=== PATIENT | male | born 1960 | race Caucasian/White ===

== ENCOUNTER 2021-05-09 11:05 | Emergency (ER) | payer OTHER, SELFPAY ==
[2021-05-09 11:21] VITALS: BP 160/110; PULSE 101; RESP 16; TEMP 36.3; O2SAT 98
--- NOTE | 2021-05-09 12:33 | ED_ITS ---
HPI - Back Pain/Injury General: Chief Complaint: Back Pain/Injury Stated Complaint: FALL RELATED BACK PAIN/NO BM SINCE 05/05 Time Seen by Provider: 05/09/21 11:26 History of Present Illness: HPI Narrative: Patient is a 60-year-old male comes to the ED with lower back pain and constipation. 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 After that he started having lower back p ain. He says it is worse whenever he is sitting. The pain radiates around from the lower back and to the front pelvic region. Denies any pain radiating down the legs, weakness to lower extremities, pelvic anesthesia or any bladder or bowel incontinence. Denies any dysuria or hematuria. He has been taking ibuprofen and Tylenol to help with pain. He also reports not having a bowel movement for the last 4 days as well. He states that is unusual for him and he usually has daily bowel movements. Patient did say he has not eaten much over the past 4 days since injury due to pain. He reports not having a sensation or feeling that he needs to have a bowel movement. Associated symptoms: Deny abdominal pain, chills, dysuria, fatigue, fever(s), hematuria, nausea or vomiting Review of Systems Const: Denies: fever(s), chills or fatigue Eyes: Denies: change in vision or eye discomfort ENMT: Denies: throat pain, odynophagia, nasal discharge or nasal congestion Card: Denies: chest pain, palpitations, edema, swelling of feet/ankles, dyspnea on exertion or orthopnea Resp: Denies: dyspnea, productive cough or non-productive cough GI: Reports: constipation; Denies: abdominal pain, nausea, vomiting, diarrhea or hematochezia : Denies: flank pain, difficulty urinating, dysuria or hematuria Musc: Reports: back pain; Denies: neck pain or extremity swelling Skin/Breast: Denies: rash or new lesions Neuro: Denies: headache(s), numbness in extremities or weakness in extremities Physical Exam Narrative: EXAM NARRATIVE: Patient is lying on his right side when I entered the exam room. He is not moving around much and laying still. Const: COMMON NORMALS: patient oriented x3 and alert GENERAL APPEARANCE: cooperative; not comfortable (Patient appears uncomfortable and in some pain.) NUTRITIONAL APPEARANCE: overweight HENMT: COMMON NORMALS: normocephalic HEAD & SCALP: normocephalic MOUTH: Normal oral and palatal mucosa present THROAT: posterior oropharynx normal and uvula midline Neck/C-Spine: COMMON NORMALS: supple GENERAL: Yes normal visual inspection Resp: COMMON NORMALS: normal respiratory effort, No retractions, No use of accessory muscles and clear to auscultation bilaterally AUSCULTATION: clear to auscultation bilaterally Cardio: COMMON NORMALS: regular rate, regular rhythm, S1 normal heart sound present, S2 normal heart sound present, No gallops present (Cardio), No clicks present (Cardio), No murmurs present (Cardio) and Peripheral pulses 2+ throughout RATE: regular rate RHYTHM: regular rhythm HEART SOUNDS: S1 normal heart sound present and S2 normal heart sound present PERIPHERAL PULSES: Peripheral pulses 2+ throughout GI: COMMON NORMALS: Normal to inspection, nondistended, normoactive bowel sounds present, Soft to palpation, non-tender and no masses PALPATION: Yes Soft to palpation : COMMON NORMALS: Yes no CVA tenderness BLADDER/KIDNEY EXAM: Yes no CVA tenderness Back/Pelvis: COMMON NORMALS: no CVA tenderness LUMBAR SPINE/LOWER BACK: Yes pain with ROM, Yes lumbar spinal tenderness Lumbar spinal tenderness location: L1, L2 and L3 and No paraspinal muscle tenderness Extremity: COMMON NORMALS: normal to inspection Neuro: COMMON NORMALS: patient oriented x3 and moves all extremities SENSORIUM/ORIENTATION: Yes alert Skin: GENERAL SKIN EXAM: dry skin Course Vital Signs: Vital signs: Vital Signs Temperature 97.3 F L 05/09/21 11:21 Pulse Rate 80 05/09/21 16:22 Respiratory Rate 16 05/09/21 16:22 Blood Pressure 160/110 05/09/21 11:21 Pulse Oximetry 96 05/09/21 16:22 MDM - Back Pain/Injury MDM Narrative: Medical decision making narrative: Patient is a 60-year-old male comes to the ED with lower back pain and constipation. 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 After that he started having lower back pain. He says it is worse whenever he is sitting. He is also complained having some constipation over the last 4 days. Denies any cauda equina symptoms. Vitals stable. Patient is some lumbar spinal tenderness around L1, L2, L3. KUB showed no acute findings or any signs of obstruction. X-ray of lumbar spine showed L2 compression fracture. X-ray of sacrum and coccyx showed no acute fractures or findings. I placed order with case management for patient to be referred to Dr. Kent for further follow-up of L2 compression fracture. Patient was put in a TLSO brace by physical therapy here in the ED. He was discharged home with a prescription for hydrocodone for pain and also sent home with a prescription for some stool softener and MiraLAX to help with constipation. Return to ED precautions given. Patient was told business case analyst will set up an appoint with Dr. Kent during the next several days. Patient stood agree with plan. Lab Data: Labs: Lab Results 05/09/21 13:15 Urine Color Yellow (Yellow) Urine Appearance Clear (CLEAR) Urine pH 5 (5-7) Ur Specific Gravit y 1.020 (1.005-1.030) Urine Protein 2+ H (Negative) Urine Glucose (UA) 4+ H (Normal) Urine Ketones 1+ H (Negative) Urine Blood 2+ H (Negative) Urine Nitrate Negative (Negative) Urine Bilirubin Neg (Negative) Urine Urobilinogen 1 mg/dL H mg/dL (Negative) Ur Leukocyte Gloria ase Negative (Negative) Urine RBC 0-4 /hpf H /hpf (0-2) Urine WBC 0-4 /hpf H /hpf (0-5) Ur Squamous Epith Cells Rare /hpf /hpf (0-5) Amorphous Sediment Not Reportable Urine Bacteria Trace /hpf /hpf (NONE) Hyaline Casts 0-4 /lpf H /lpf Urine Mucus Trace /hpf /hpf Imaging Data^: Xray Ortho: Attestation: I personally reviewed and interpreted this imaging study as follows: Radiologist's impression: [address] [address] XRay Report Signed Patient: Chinmay Spaulding Unit #: [id number] : 1960 Age/Sex: 60 / M ADM Date: 05/09/21 Loc: ER Room/Bed: Attending Dr: Ordering Provider/Ordering MD: Rolando Rios Date of Service: 12/17/21 Procedure(s): XR lumbar spine 2-3V* 21081 Accession Number(s): [id number] Report Number: [id number] WS: [id number] XR lumbar spine 2-3V* 39295 REASON FOR EXAM: fall with lower back pain FINDINGS: There appear to be 6 lumbar vertebral bodies without ribs. There are biconcave compression deformities of the last vertebrae with ribs and the first 3 lumbar vertebrae. The compression deformity of the second lumbar vertebrae could represent an acute/subacute compression fracture. Complex fused transitional vertebrae variant at the lumbosacral junction without acute abnormality. Biconcave compression deformity of the fused transitional lumbar vertebra, chronic appearing. Intervertebral disc spaces are relatively well-preserved. XR/XR lumbar spine 2-3V* [id number] IMPRESSION: Possible acute/subacute compression fracture of the second lumbar vertebrae. Dictated By: Louis Boston Jr, MD Signed By: Louis Boston Jr, MD Signed Date/Time: 05/09/21 1325 DD/ [address] [address] XRay Report Signed Patient: Chinmay Spaulding Unit #: [id number] : 1960 Age/Sex: 60 / M ADM Date: 05/09/21 Loc: ER Room/Bed: Attending Dr: Ordering Provider/Ordering MD: Rolando Rios Date of Service: 05/09/21 Procedure(s): XR sacrum coccyx min 2V 83332 Accession Number(s): [id number] Report Number: [id number] WS: [id number] XR sacrum coccyx min 2V 15344 REASON FOR EXAM: fall with low back pain FINDINGS: No fracture or dislocation. No focal bone lesion. Narrowing and indistinctness of the sacroiliac joints with subchondral sclerosis and cystic change. No soft tissue abnormality. XR/XR sacrum coccyx min 2V 72069 IMPRESSION: No acute abnormality. Chronic sacroiliitis, likely osteoarthritis. Dictated By: Louis Boston Jr, MD Signed By: Louis Boston Jr, MD Signed Date/Time: 05/09/21 1312 DD/ 1307 Discharge Plan Discharge Patient Disposition: Home Clinical Impression: Compression of lumbar vertebra Qualifiers: Encounter type: initial encounter Lumbar vertebra fracture level: L2 Qualified Code(s): S32.020A - Wedge compression fracture of second lumbar vertebra, initial encounter for closed fracture Constipation Qualifiers: Constipation type: slow transit constipation Qualified Code(s): K59.01 - Slow transit constipation Condition: Stable Prescriptions: New Miralax 17 gram/dose powder 17 g PO DAILY 4 Days Qty: 119 RF: 0 Stool Softener (docusate ) 240 mg capsule 240 mg PO BID PRN (Reason: constipation) Qty: 30 RF: 0 No Action No Known Home Medications RF: 0 Discharge Orders: Discharge ED (Routine); Ordered 05/09/21 Ordered By: Rolando Rios Discharge Diet: Regular Discharge Activity: Resume usual activity Patient Instructions: Constipation (DC), Thoracolumbar Fracture (ED), Opioid Safety Activity Restrictions/Additional Instructions: Follow-up with medical provider as directed. Case management should be contacting you next several days set up appointment with Dr. Kent the orthospine specialist. Take medications as prescribed. Drink plenty of fluids and stay hydrated. Wear TLSO brace. Limit any lifting or activity until cleared by Dr. Kent. Return to the ER or your medical provider if condition worsens. Please read and understand discharge instructions. Thank you for choosing [facility] for your healthcare needs today. Please realize this is an emergency room and that we are providing you with a medical screening exam and this may not be complete and all inclusive of all the testing and or work up that you may need to determine your ailment or severity of your illness. It is very important that you follow up as instructed or that you return to the Emergency Department should you have concerns or if your condition changes or worsens in any way. Coding Level of Care Code ED General Scrap Worker for Dov Daniel Exam Comprehensive
--- NOTE | 2021-05-09 12:34 | XR_ITS ---
WS: [email or web address] XR lumbar spine 2-3V* 53615 REASON FOR EXAM: fall with lower back pain FINDINGS: There appear to be 6 lumbar vertebral bodies without ribs. There are biconcave compression deformities of the last vertebrae with ribs and the first 3 lumbar ve rtebrae. The compression deformity of the second lumbar vertebrae could represent an acute/subacute c ompression fracture. Complex fused transitional vertebrae variant at the lumbosacral junction without acute abnormality. B iconcave compression deformity of the fused transitional lumbar vertebra, chronic appearing. Intervertebral disc spaces are relatively well-preserved. XR/XR lumbar spine 2-3V* 25186 IMPRESSION: Possible acute/subacute compression fracture of the second lumbar vertebrae.
--- NOTE | 2021-05-09 12:34 | XR_ITS ---
WS: [email or web address] XR KUB portable [id number] REASON FOR EXAM: constipation FINDINGS: Bowel gas pattern not obstructive Moderate stool within the colon. Gas in the rectosigmoid colon. No free air or retroperitoneal air is identified. Calcification in the right upper quadrant could be right intrarenal calculi or gallbladder calculi. No other significant abnormality. XR/XR KUB portable [id number] IMPRESSION: No acute abnormality. Right intrarenal calculi versus cholelithiasis.
--- NOTE | 2021-05-09 12:34 | XR_ITS ---
WS: [email or web address] XR sacrum coccyx min 2V 74081 REASON FOR EXAM: fall with low back pain FINDINGS: No fracture or dislocation. No focal bone lesion. Narrowing and indistinctness of the sacroiliac joints with subchondral sclerosis and cystic change. No soft tissue abnormality. XR/XR sacrum coccyx min 2V 93524 IMPRESSION: No acute abnormality. Chronic sacroiliitis, likely osteoarthritis.
[2021-05-09 13:28] VITALS: RESP 17
[2021-05-09] MEDS: morphine 4 mg/mL SDV 1 mL IM (13:28)
[2021-05-09 14:03] LABS: Urine Appearance Clear (CLEAR); Urine Color Yellow (Yellow); pH Urine 5 (5-7)
[2021-05-09 14:04] LABS: Add Urine Microscopic? YES; Bilirubin Urine Neg (Negative); Blood Urine 2+ (Negative); Glucose Urine UA 4+ (Normal); Ketones Urine 1+ (Negative); Leukocyte Esterase Urine Negative (Negative); Nitrate Urine Negative (Negative); Protein Urine 2+ (Negative); Urobilinogen Urine 1 mg/dL (Negative)
[2021-05-09 14:06] LABS: Add Urine Culture? No; Bacteria Urine TRACE /hpf; Hyaline Casts Urine 0-4 /lpf; Mucus Urine TRACE /hpf; RBC Urine 0-4 /hpf (0-2); Squamous Epithelial Cell Urine RARE /hpf (0-5); WBC Urine 0-4 /hpf (0-5)
[2021-05-09 15:33] VITALS: RESP 16; O2SAT 96
[2021-05-09] MEDS: oxyCODONE-APAP 5-325 mg Tablet 1 TAB PO (15:33)
[2021-05-09 16:22] VITALS: PULSE 80; RESP 16; O2SAT 96
--- NOTE | 2021-05-10 13:25 | DCPLANNER ---
regional transportation manager had message to schedule a follow up appointment for patient with ortho. regional transportation manager called the ortho clinic, spoke with Asmita, gave clinic patients information. regional transportation manager was told that patients information would be printed and reviewed. Clinic will call patient with appointment information.
--- NOTE | 2021-05-16 07:43 | DCPLANNER ---
Patient had a follow up appointment scheduled for 05.13.[address] Kent at [facility] - patient did attend appointment.
== END 2021-05-09 16:24 | disposition home or self-care (01) ==
PROVIDERS: Emergency Provider Physician Assistant
DX: S32.020A Wedge compression fracture of second lumbar vertebra, initial encounter for closed fracture (principal); K59.01 Slow transit constipation; W18.30XA Fall on same level, unspecified, initial encounter; Y92.79 Other farm location as the place of occurrence of the external cause
CPT/HCPCS: 72100; 72220; 74018; 81001; 96372; 97760; 99283; J2270; L0456

== ENCOUNTER → 2021-06-17 13:33 | Outpatient (BNVA) | payer OTHER, SELFPAY | PROVIDERS: Visit Provider Orthopaedic Surgery | DX: S32.020A Wedge compression fracture of second lumbar vertebra, initial encounter for closed fracture (principal); X58.XXXA Exposure to other specified factors, initial encounter | CPT/HCPCS: 72100 ==

== ENCOUNTER 2021-09-20 18:57 | Emergency (ER) | payer OTHER, SELFPAY ==
[2021-09-20] VITALS (8 sets, daily range): BP systolic 150–202; BP diastolic 86–111; PULSE 76–106; RESP 13–23; TEMP 36.1; O2SAT 91–96; BMI 36.9
--- NOTE | 2021-09-20 19:29 | ECG_ITS ---
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 Measurements Intervals [place] Rate: 100 P: 36 FL: 198 QRS: 10 QRSD: 96 T: 28 QT: 357 QTc: 461 Interpretive Statements SINUS TACHYCARDIA ABNORMAL RHYTHM ECG No previous ECG available for comparison Electronically Signed On 09-21-2021 8:15:27 CDT by Flavio Lee M.D. [id number]
--- NOTE | 2021-09-20 19:29 | CTR_ITS ---
PROCEDURE INFORMATION: Exam: CT Angiography Head With Contrast, Arteriography Exam date and time: 09/20/2021 7:50 PM Age: 60 years old Clinical indication: Numbness and weakness; Patient HX: C/O left sided weakness/numbness since yesterday. ; Additional info: L sided weakness TECHNIQUE: Imaging protocol: Computed tomography angiography of the head with contrast. Exam focused on the arteries. 3D rendering (Not supervised by radiologist): MIP and/or 3D reconstructed images were created by the technologist. Radiation optimization: All CT scans at this facility use at least one of these dose optimization techniques: automated exposure control; mA and/or kV adjustment per patient size (includes targeted exams where dose is matched to clinical indication); or iterative reconstruction. Contrast material: OMNI 350; Contrast volume: 95 ml; Contrast route: INTRAVENOUS (IV); COMPARISON: CT head wo con* [id number] 09/20/2021 7:46 PM RADIATION DOSE METRICS: Total DLP (mGy-cm): 2405.61 FINDINGS: ANTERIOR CIRCULATION: Right internal carotid artery: Unremarkable. Intracranial segment is patent with no significant stenosis. No aneurysm. Right middle cerebral artery: Unremarkable. No occlusion or significant stenosis. No aneurysm. Right anterior cerebral artery: Dominant right A1 segment with hypoplastic left A1 segment. Normal variant. Anterior communicating artery: Patent anterior communicating artery. Left internal carotid artery: 50% stenosis in the left cavernous ICA secondary to noncalcified plaque, axial series 3, image 97. Left middle cerebral artery: Unremarkable. No occlusion or significant stenosis. No aneurysm. Left anterior cerebral artery: Unremarkable. No occlusion or significant stenosis. No aneurysm. POSTERIOR CIRCULATION: Right vertebral artery: Dominant left vertebral artery with patent right vertebral artery. Left vertebral artery: Unremarkable. No occlusion or significant stenosis. No aneurysm. Basilar artery: Unremarkable. No occlusion or significant stenosis. No aneurysm. Right posterior cerebral artery: Unremarkable. No occlusion or significant stenosis. No aneurysm. Left posterior cerebral artery: Unremarkable. No occlusion or significant stenosis. No aneurysm. Brain: No definite mass, mass effect, or midline shift. Cerebral ventricles: No ventriculomegaly. Bones/joints: Unremarkable. No acute fracture. Soft tissues: Unremarkable. Other findings: No large vessel occlusion. PROCEDURE INFORMATION: Exam: CT Angiography Neck With Contrast Exam date and time: 09/20/2021 7:50 PM Age: 60 years old Clinical indication: Numbness and weakness; Patient HX: C/O left sided weakness/numbness since yesterday. ; Additional info: L sided weakness TECHNIQUE: Imaging protocol: Computed tomography angiography of the neck with contrast. 3D rendering (Not supervised by radiologist): MIP and/or 3D reconstructed images were created by the technologist. Radiation optimization: All CT scans at this facility use at least one of these dose optimization techniques: automated exposure control; mA and/or kV adjustment per patient size (includes targeted exams where dose is matched to clinical indication); or iterative reconstruction. Contrast material: OMNI 350; Contrast volume: 95 ml; Contrast route: INTRAVENOUS (IV); COMPARISON: CT head wo con* [id number] 09/20/2021 7:46 PM RADIATION DOSE METRICS: Total DLP (mGy-cm): 2405.61 FINDINGS: Right common carotid artery: No stenosis. No dissection or occlusion. Right internal carotid artery: No ICA stenosis by NASCET/SRU criteria. Right external carotid artery: No occlusion or stenosis of the origin. Left common carotid artery: No stenosis. No dissection or occlusion. Left internal carotid artery: No stenosis of the extracranial segment. No dissection or occlusion. Left external carotid artery: No occlusion or stenosis of the origin. Left callosomarginal artery: Moderate multilevel spine degenerative changes including degenerative disc disease, spondylosis and facet degenerative changes. Multilevel bilateral foraminal stenosis. Right vertebral artery: Dominant left vertebral artery with patent right vertebral artery. Left vertebral artery: No stenosis. No dissection or occlusion. Soft tissues: Normal. No significant soft tissue swelling. Bones/joints: No acute fracture. CT/CT angio headneck* [id number] IMPRESSION: 1. 50% stenosis in the left cavernous ICA secondary to noncalcified plaque, axial series 3, image 97. 2. Dominant right A1 segment with hypoplastic left A1 segment. Normal variant. 3. No large vessel occlusion. IMPRESSION: 1. Dominant left vertebral artery with patent right vertebral artery. 2. No ICA stenosis by NASCET/SRU criteria. REFERENCES: NASCET CRITERIA. The degree of internal carotid artery stenosis is based on NASCET criteria. Normal is no stenosis. Mild is less than 50% stenosis. Moderate is 50-69% stenosis. Severe is 70% to 99% stenosis. Total occlusion is no detectable patent lumen.
--- NOTE | 2021-09-20 19:29 | CTR_ITS ---
PROCEDURE INFORMATION: Exam: CT Head Without Contrast Exam date and time: 09/20/2021 7:46 PM Age: 60 years old Clinical indication: Weakness, extremity; Patient HX: C/O left sided weakness/numbness since yesterday. ; Additional info: Symptoms of acute stroke TECHNIQUE: Imaging protocol: Computed tomography of the head without contrast. Radiation optimization: All CT scans at this facility use at least one of these dose optimization techniques: automated exposure control; mA and/or kV adjustment per patient size (includes targeted exams where dose is matched to clinical indication); or iterative reconstruction. COMPARISON: No relevant prior studies available. RADIATION DOSE METRICS: Total DLP (mGy-cm): 1040.48 FINDINGS: Brain: Normal. No hemorrhage. Unremarkable white matter. No mass effect. Cerebral ventricles: No ventriculomegaly. Paranasal sinuses: Mild right maxillary sinus disease. Mastoid air cells: Visualized mastoid air cells are well aerated. Bones/joints: Unremarkable. No acute fracture. Soft tissues: Unremarkable. CT/CT head wo con* [id number] IMPRESSION: 1. Mild right maxillary sinus disease. 2. No acute intracranial findings.
[2021-09-20 19:34] LABS: Basophils # 0.1 10^3/uL (0.0-0.1); Basophils % 0.8 %; Eosinophils # 0.2 10^3/uL (0.0-0.8); Hemoglobin 16.7 g/dL (11.7-16.6); Lymphocytes # 2.8 10^3/uL (0.8-4.8); Lymphocytes % 37.2 %; Mean Corpuscular HGB Conc 34.8 g/dL (30.0-36.0); Mean Corpuscular Volume 86.2 fl (80-94); Mean Platelet Volume 9.9 fL (7.4-10.4); Monocytes # 0.4 10^3/uL (0.2-0.9); Monocytes % 5.9 %; Neutrophils # 3.98 10^3/uL (1.8-7.7); Neutrophils % 53.7 %; Nucleated Red Blood Cells % 0 %; Platelet Count 217 10^3/cmm (130-400); Red Blood Count 5.57 10^6/uL (4.1-5.3); Red Cell Distribution Width 13.1 % (12.1-15.1); White Blood Count 7.4 10^3/uL (4.0-10.0)
--- NOTE | 2021-09-20 19:36 | W.ED.NEUROSD ---
HPI - Neuro Symptoms/Deficit General: Chief Complaint: Neuro Symptoms/Deficit Stated Complaint: Possible Stroke Time Seen by Provider: 09/20/21 19:13 Source: patient and family History of Present Illness: 60-year-old male with a history of untreated diabetes and hypertension. He does not have a PCP. He presents with onset at 2 PM yesterday of left-sided facial numbness, upper greater than lower extremity numbness. He denies significant weakness. He says his tongue is a bit numb on the left side as well. His states that she believes he may be slurring his speech a bit. No vision changes. No headache. Again no weakness. He notes that he is unsteady on his feet, but he believes it is due to his decreased sensation Onset (ago): hour(s) (2pm yesterday) Timing confirmed by: spouse Location: speech, left face, left arm and left leg History of same: No Severity: mild Quality: numb and tingling Relieving factors: none Exacerbating factors: none Context: gradual onset On Anticoagulants: No Associated symptoms: Reports tingling; Deny chest pain, cough, diaphoresis, fevers/chills, headache(s), nausea, seizures, short of breath, syncope, vertigo, vomiting or weakness Treatments Prior to Arrival: none Review of Systems Const: Denies: fever(s), chills or diaphoresis Eyes: Denies: change in vision or blurry vision ENMT: Denies: throat pain Card: Denies: chest pain or syncope Resp: Denies: dyspnea, productive cough or non-productive cough GI: Denies: abdominal pain, nausea or vomiting Musc: Denies: neck pain Neuro: Denies: headache(s) or vertigo PFSH ED PFSH: Social History Smoking and tobacco status: current every day smoker NIH stroke score NIHSS: Level Of Consciousness - 1a: 0 Level Of Consciousness Questions - 1b: Both Correct Level Of Consciousness Commands - 1c: Both Correct Best Gaze - 2: Normal Visual Lira - 3: No Visual Loss Facial Palsy - 4: Normal Motor Arm Right - 5: No Drift Motor Arm Left - 5: No Drift Motor Leg Right - 6: No Drift Motor Leg Left - 6: No Drift Limb Ataxia - 7: Present In One Limb Sensory - 8: Mild To Moderate Loss Best Language - 9: No Aphasia Dysarthia - 10: Normal Extinction And Inattention - 11: 0 Score: Total Score: 2 Physical Exam Const: GENERAL APPEARANCE: cooperative and well kempt HENMT: COMMON NORMALS: normocephalic, atraumatic and Normal external nose present HEAD & SCALP: normocephalic and atraumatic FACE & SINUS: normal facial exam and face symmetric NOSE: Normal external nose present Eye: COMMON NORMALS: Equal, round and reactive pupils present and EOMs intact bilaterally VISUAL LIRA: No peripheral vision loss PUPIL: Yes Equal, round and reactive pupils present Chest: COMMONS NORMALS: normal inspection of the chest Resp: COMMON NORMALS: normal respiratory effort, No use of accessory muscles and clear to auscultation bilaterally AUSCULTATION: clear to auscultation bilaterally Cardio: COMMON NORMALS: regular rate and regular rhythm RATE: regular rate RHYTHM: regular rhythm GI: COMMON NORMALS: Normal to inspection, nondistended, normoactive bowel sounds present and Soft to palpation PALPATION: Yes Soft to palpation Extremity: GENERAL: Yes edema (1+) Neuro: ENMA COMA SCALE: document GCS findings Enma coma scale eye opening: Spontaneous [place] coma scale verbal response: Orientated [place] coma scale motor response: Obey commands Enma coma scale total score: 15 CRANIAL NERVES: Yes CN V (trigeminal) CN V laterality: left CN V left: maxillary branch sensation abnormal COORDINATION/BALANCE: trsh-gb-[id number] test normal and other (Minimal trouble with left wvhwmx-ga-[id number]) SPEECH: speech normal SENSORY EXAM: Yes extremities (Mild sensory loss left lower extremity and left face as above) COORDINATION: rupb-dl-lttl test normal and other (Minimal trouble with left [id number]-[id number]) Psych: COMMON NORMALS: mental status grossly normal and cooperative APPEARANCE: Yes well ket Course Vital Signs: Vital signs: Vital Signs Temperature 97.0 F L 09/20/21 19:01 Pulse Rate 79 09/20/21 23:30 Respiratory Rate 18 09/20/21 23:30 Blood Pressure 170/91 09/20/21 23:30 Pulse Oximetry 96 09/20/21 23:30 MDM - Neuro Symptoms/Deficit Medical Decision Making 60-year-old gentleman with paresthesias to the left upper and lower extremity as well as his face. No significant weakness on exam. His blood sugar is 366. He is not acidotic. His other labs are benign. Head CT shows mild right maxillary sinus disease and otherwise is negative. His CTA shows a 50% stenosis in the left ICA, with no acute occlusion. His blood pressure was quite high on arrival. Improved after labetalol. Currently 166/93. With his low NIHSS, and the fact that he is more than 24 hours out from onset of his symptoms, he has not a candidate for intervention. He was given option of admission, given his stroke symptoms, and untreated hypertension and diabetes. He chooses to go home instead, and continue his work-up as an outpatient. We will make a case management order for referral to primary care physician. He will go home on appropriate medication for secondary prevention of stroke, as well as hypertension and diabetes medication Lab Data : 09/20/21 19:14 09/20/21 19:[address] 09/20/21 19:29 IMPRESSION: 1. Mild right maxillary sinus disease. 2. No acute intracranial findings. Head/Neck CTA 09/20/21 19:29 IMPRESSION: 1. 50% stenosis in the left cavernous ICA secondary to noncalcified plaque, axial series 3, image 97. 2. Dominant right A1 segment with hypoplastic left A1 segment. Normal variant. 3. No large vessel occlusion. IMPRESSION: 1. Dominant left vertebral artery with patent right vertebral artery. 2. No ICA stenosis by NASCET/SRU criteria. REFERENCES: NASCET CRITERIA. The degree of internal carotid artery stenosis is based on NASCET criteria. Normal is no stenosis. Mild is less than 50% stenosis. Moderate is 50-69% stenosis. Severe is 70% to 99% stenosis. Total occlusion is no detectable patent lumen. Laboratory Results WBC 7.4 10^3/uL (4.0-10.0) 09/20/21 19:14 RBC 5.57 10^6/uL (4.1-5.3) H 09/20/21 19:14 Hgb 16.7 g/dL (11.7-16.6) H 09/20/21 19:14 Hct 48.0 % (42.0-52.0) 09/20/21 19:14 MCV 86.2 fl (80-94) 09/20/21 19:14 MCH 30.0 pg (28.0-34.0) 09/20/21 19:14 MCHC 34.8 g/dL (30.0-36.0) 09/20/21 19:14 RDW 13.1 % (12.1-15.1) 09/20/21 19:14 Plt Count 217 10^3/cmm (130-400) 09/20/21 19:14 MPV 9.9 fL (7.4-10.4) 09/20/21 19:14 Neut % (Auto) 53.7 % 09/20/21 19:14 Lymph % (Auto) 37.2 % 09/20/21 19:14 [place] % (Auto) 5.9 % 09/20/21 19:14 Eos % (Auto) 2.0 % 09/20/21 19:14 Baso % (Auto) 0.8 % 09/20/21 19:14 Neut # (Auto) 3.98 10^3/uL (1.8-7.7) 09/20/21 19:14 Lymph # (Auto) 2.8 10^3/uL (0.8-4.8) 09/20/21 19:14 [place] # (Auto) 0.4 10^3/uL (0.2-0.9) 09/20/21 19:14 Eos # (Auto) 0.2 10^3/uL (0.0-0.8) 09/20/21 19:14 Baso # (Auto) 0.1 10^3/uL (0.0-0.1) 09/20/21 19:14 Nucleated RBC % (auto) 0 % 09/20/21 19:14 Nucleated RBCs # 0.0 /100WBC 09/20/21 19:14 PT 12.60 SECONDS (12.1-14.9) 09/20/21 19:14 INR 0.92 (0.8-1.2) 09/20/21 19:14 APTT 30.2 SECONDS (23.9-36.7) 09/20/21 19:14 Sodium 134 mmol/L (136-145) L 09/20/21 19:14 Potassium 3.8 mmol/L (3.5-5.1) 09/20/21 19:14 Chloride 97 mmol/L (98-107) L 09/20/21 19:14 Carbon Dioxide 26 mmol/L (22-29) 09/20/21 19:14 Anion Gap 14.8 (5-19) 09/20/21 19:14 BUN 12 mg/dL (6-20) 09/20/21 19:14 Creatinine 0.7 mg/dL (0.7-1.2) 09/20/21 19:14 GFR Calculation 115.8 mL/min (90-130) 09/20/21 19:14 Glucose 366 mg/dL (65-115) H 09/20/21 19:14 POC Glucose 341 mg/dL (70-110) H 09/20/21 20:21 Calculated Osmolality 293 mOsm/kg (285-295) 09/20/21 19:14 Calcium 8.5 mg/dL (8.5-10.5) 09/20/21 19:14 Total Bilirubin 0.6 mg/dL (0.15-1.2) 09/20/21 19:14 AST 14 U/L (0-40) 09/20/21 19:14 ALT 17 U/L (0-41) 09/20/21 19:14 Alkaline Phosphatase 112 IU/L (40-130) 09/20/21 19:14 Total Protein 7.1 g/dL (6.6-8.7) 09/20/21 19:14 Albumin 4.5 g/dL (3.5-5.2) 09/20/21 19:14 Globulin 2.6 g/dL (1.3-4.6) 09/20/21 19:14 Urine Color Yellow (Yellow) 09/20/21 20:03 Urine Appearance Clear (CLEAR) 09/20/21 20:03 Urine pH 5 (5-7) 09/20/21 20:03 Ur Specific [place] 1.020 (1.005-1.030) 09/20/21 20:03 Urine Protein 1+ (Negative) H 09/20/21 20:03 Urine Glucose (UA) 4+ (Normal) H 09/20/21 20:03 Urine Ketones Negative (Negative) 09/20/21 20:03 Urine Blood 2+ (Negative) H 09/20/21 20:03 Urine Nitrate Negative (Negative) 09/20/21 20:03 Urine Bilirubin Neg (Negative) 09/20/21 20:03 Urine Urobilinogen Norm mg/dL (Negative) 09/20/21 20:03 Ur Leukocyte Esterase Negative (Negative) 09/20/21 20:03 Urine RBC 10-15 /hpf (0-2) H 09/20/21 20:03 Urine WBC 0-4 /hpf (0-5) H 09/20/21 20:03 Ur Squamous Epith Cells 0-4 /hpf (0-5) H 09/20/21 20:03 Amorphous Sediment Not Reportable 09/20/21 20:03 Urine Bacteria Trace /hpf (NONE) 09/20/21 20:03 Urine Opiates Screen Negative ng/mL (Negative) 09/20/21 20:03 Ur Barbiturates Screen Negative ng/mL (Negative) 09/20/21 20:03 Ur Phencyclidine Scrn Negative ng/mL (Negative) 09/20/21 20:03 Ur Amphetamines Screen Negative ng/mL (Negative) 09/20/21 20:03 U Benzodiazepines Scrn Negative ng/mL (Negative) 09/20/21 20:03 Urine Cocaine Screen Negative ng/mL (Negative) 09/20/21 20:03 U Marijuana (THC) Screen Positive ng/mL (Negative) H 09/20/21 20:03 Discharge Plan Discharge Patient Disposition: Home Clinical Impression: Cerebrovascular accident Condition: Stable Prescriptions: New glyburide 5 mg tablet 5 mg PO BID Qty: 60 0RF aspirin 325 mg tablet,delayed release (DR/EC) 325 mg PO DAILY Qty: 30 0RF atorvastatin 80 mg tablet 80 mg PO DAILY Qty: 30 0RF lisinopril 20 mg tablet 20 mg PO DAILY Qty: 30 0RF Discharge Orders: Discharge ED (Routine); Ordered 09/20/21 Ordered By: John Chanel Patient Instructions: Hypertension (ED), Diabetic Hyperglycemia (ED), Stroke (DC) Activity Restrictions/Additional Instructions: Return immediately to the ER for any worsening problems with weakness, numbness, language, vision, syncope or passing out, chest discomfort, or any other concerning symptoms. Medication as directed. You should get a call early in the week regarding outpatient follow-up with your primary doctor as well as further outpatient testing. If you do not, dial [phone] and ask for the ER case hardenerrestaurant area manager Level of Care Code ED Affiliate Manager for Chg Fwd Exam Comprehensive
[2021-09-20 19:44] LABS: Alanine Aminotransferase 17 U/L (0-41); Albumin Level 4.5 g/dL (3.5-5.2); Alkaline Phosphatase 112 IU/L (40-130); Anion Gap 14.8 (5-19); Aspartate Amino Transferase 14 U/L (0-40); Blood Urea Nitrogen 12 mg/dL (6-20); Calcium 8.5 mg/dL (8.5-10.5); Carbon Dioxide 26 mmol/L (22-29); Chloride 97 mmol/L (98-107); Creatinine Clr Calc Pharmacy 151.7338; Globulin 2.6 g/dL (1.3-4.6); Glomerular Filtration Rate 115.8 mL/min (90-130); Glucose 366 mg/dL (65-115); Osmolality Calculated 293 mOsm/kg (285-295); Potassium 3.8 mmol/L (3.5-5.1); Sodium 134 mmol/L (136-145); Total Bilirubin 0.6 mg/dL (0.15-1.2); Total Protein 7.1 g/dL (6.6-8.7)
[2021-09-20 19:47] LABS: INR 0.92 (0.8-1.2); Partial Thromboplastin Time 30.2 SECONDS (23.9-36.7)
[2021-09-20] MEDS: iohexol 350 mg/mL 100 mL Btl IV (19:49)
[2021-09-20] MEDS: labetalol 5 mg/mL SDV 20mL 20 MG IVP (20:08)
[2021-09-20 20:21] LABS: Amphetamines Screen Urine Negative (Negative); Barbiturates Screen Urine Negative (Negative); Benzodiazepines Screen Urine Negative (Negative); Cocaine Screen Urine Negative (Negative); Opiate Screen Urine Negative (Negative); PCP Screen Urine Negative (Negative); THC Screen Urine Positive (Negative)
[2021-09-20 20:24] LABS: Glucose Point of Care 341 mg/dL (70-110)
[2021-09-20 20:47] LABS: Add Urine Microscopic? YES; Bilirubin Urine Neg (Negative); Blood Urine 2+ (Negative); Glucose Urine UA 4+ (Normal); Ketones Urine Negative (Negative); Leukocyte Esterase Urine Negative (Negative); Nitrate Urine Negative (Negative); Protein Urine 1+ (Negative); Urine Appearance Clear (CLEAR); Urine Color Yellow (Yellow); Urobilinogen Urine Norm (Negative); pH Urine 5 (5-7)
[2021-09-20 20:48] LABS: Add Urine Culture? Yes; Bacteria Urine TRACE /hpf; Squamous Epithelial Cell Urine 0-4 /hpf (0-5); WBC Urine 0-4 /hpf (0-5)
[2021-09-20] MEDS: atorvastatin 40 mg Tablet 80 MG PO (23:10)
[2021-09-20] MEDS: aspirin 325 mg Tablet PO (23:10)
[2021-09-20] MEDS: lisinopril 20 mg Tablet PO (23:10)
--- NOTE | 2021-09-22 10:34 | DCPLANNER ---
Addendum entered by Erum Marquez 11/09/21 06:07: Patient had an outpatient MRI and echo scheduled for 10.28.21 - patient did attend both appointments. Addendum entered by Erum Marquez 09/25/21 15:08: Patient had a follow up appointment scheduled for 09.24.[address] Mahmood at [facility] - patient did attend appointment. Patient has an outpatient MRI scheduled for Thursday, October 28, 2021 at 1:00. Centralized scheduling will call patient with appointment information. Original Note: manager employee relations had message to speak with patient about getting established with a primary care physician and to schedule and MRI and an echo. manager employee relations spoke with patient, he stated that he does not have a primary care physician, but would like to be established with someone. manager employee relations called [facility], spoke with Mildred, gave clinic patients information. A follow up appointment was scheduled for September at 10:[address] Mahmood. manager employee relations gave patient the appointment information. manager employee relations faxed signed order to centralized scheduling for an MRI and Echocardiogram. Centralized scheduling will call patient with appointment information.
== END 2021-09-20 23:30 | disposition home or self-care (01) ==
PROVIDERS: Emergency Provider Emergency Medicine
DX: I63.9 Cerebral infarction, unspecified (principal); F17.210 Nicotine dependence, cigarettes, uncomplicated
CPT/HCPCS: 36416; 70450; 70496; 70498; 80053; 80306; 81001; 82962; 85025; 85610; 85730; 87086; 93005; 96374; 99284; J3490; Q9967

== ENCOUNTER → 2021-09-23 14:45 | Outpatient (BNVA) | payer OTHER, SELFPAY | PROVIDERS: Visit Provider Family Medicine Adult Medicine | DX: I63.9 Cerebral infarction, unspecified (principal); E11.9 Type 2 diabetes mellitus without complications | CPT/HCPCS: 83036 ==

== ENCOUNTER 2021-10-16 08:41 | Outpatient (RCR) | payer OTHER, SELFPAY | END 2021-10-21 23:59 | disposition home or self-care (01) | LOC: SPT 08:41 | PROVIDERS: Referring Provider Family Medicine Adult Medicine; Visit Provider Family Medicine Adult Medicine | DX: I69.944 Monoplegia of lower limb following unspecified cerebrovascular disease affecting left non-dominant side (principal); I69.998 Other sequelae following unspecified cerebrovascular disease; R26.89 Other abnormalities of gait and mobility | CPT/HCPCS: 97161 ==

== ENCOUNTER 2021-10-22 06:00 | Outpatient (RCR) | payer OTHER, SELFPAY | END 2021-11-20 23:59 | disposition home or self-care (01) | LOC: SPT 06:00 | PROVIDERS: PCP Family Medicine Adult Medicine; Referring Provider Family Medicine Adult Medicine; Visit Provider Family Medicine Adult Medicine | DX: I69.954 Hemiplegia and hemiparesis following unspecified cerebrovascular disease affecting left non-dominant side (principal); I69.998 Other sequelae following unspecified cerebrovascular disease; R26.89 Other abnormalities of gait and mobility | CPT/HCPCS: 97110 ==

== ENCOUNTER 2021-10-28 11:26 | Outpatient (CLI) | payer OTHER, SELFPAY ==
--- NOTE | 2021-10-28 11:15 | USCV_ITS ---
Chinmay Spaulding Age: 61 Gender: M : 1960 Exam Date: 10/28/2021 12:11 Ordering Phys: Warner Mahmood MD Technologist: YINKA Exam Location: [facility] [place] Indication: STROKE BP: 136 / 80 HR: 82 Rhythm: Sinus Technical Quality: Technically difficult study MEASUREMENTS (Male / Female) Normal Values 2D ECHO LV Diastolic Diameter PLAX 5.2 cm 4.2 - 5.9 / 3.9 - 5.3 cm LV Systolic Diameter PLAX 3.7 cm IVS Diastolic Thickness 0.9 cm 0.6 - 1.0 / 0.6 - 0.9 cm IVS Systolic Thickness 1.8 cm LVPW Diastolic Thickness 0.9 cm 0.6 - 1.0 / 0.6 - 0.9 cm LVPW Systolic Thickness 1.7 cm LVOT Diameter 2.0 cm LV Ejection Fraction 2D Teich 56.9 % LA Diameter 2.8 cm Aorta at Sinotubular Diameter 2.4 cm IVC Diameter 1.6 cm M-MODE Aortic Annulus Diameter 3.5 cm LA Ao Ratio MM 0.8 MV E Point Septal Separation 0.8 cm DOPPLER AV Peak Velocity 113.0 cm/s LVOT Peak Velocity 112.0 cm/s AV Area Cont Eq vti 3.4 cm squared AV Area Cont Eq pk 3.1 cm squared MV Area PHT 2.8 cm squared Mitral E to A Ratio 0.7 MV E' Velocity 29.5 cm/s Mitral E to MV E' Ratio 7.2 Mitral E to LV E' Lateral Ratio 7.0 Mitral E to LV E' Septal Ratio 7.3 Right Atrial Pressure 3.0 mmHg PV Peak Velocity 111.0 cm/s RV Acceleration Time 0.2 s RV Ejection Time 0.3 s RV AcT/ET 0.7 FINDINGS Left Ventricle Normal left ventricular size and systolic function, EF 55%. Mild left ventricular hypertrophy. Grade I/IV diastolic dysfunction (abnormal relaxation filling pattern), normal to mildly elevated filling pressures. Right Ventricle The right ventricle is normal in size and function. Right Atrium The right atrium is normal in size. Left Atrium The left atrium is normal in size. Mitral Valve No gross abnormalities noted Aortic Valve No gross abnormalities noted Tricuspid Valve No gross abnormalities noted Pulmonic Valve No gross abnormalities noted Pericardium Normal pericardium without effusion. Aorta Normal ascending aorta dimension. IVC Normal size and collapsibility CONCLUSIONS Normal left ventricular size and systolic function, EF 55%. Mild left ventricular hypertrophy. Grade I/IV diastolic dysfunction (abnormal relaxation filling pattern), normal to mildly elevated filling pressures. There is no pericardial effusion. There are no intracardiac masses. No previous study is available for comparison. Dr Lyle Martinez MD [facility] (Electronically Signed) Final Date: 29 October 2021 08:57 S
--- NOTE | 2021-10-28 12:29 | MR_ITS ---
WS: [id number] MRI BRAIN WITH AND WITHOUT CONTRAST HISTORY: CVA, left-sided numbness. COMPARISON: CT head 09/20/2021 TECHNIQUE: Multiplanar imaging performed through the brain with MultiHance 20 ml's IV. No acute infarcts are seen. [place]-white matter differentiation is well preserved. Moderate amount of T 2 and FLAIR signal hyperintensities in the periventricular and subcortical white matter. Slightly mor e than expected for the patient's age. No large territory infarct. No hemorrhage or mass effect. No susceptibility artifacts or prior lacunar infarcts. Ventricles and extra-axial spaces are normal. Clivus and pituitary gland are normal. Visualized posterior fossa and brainstem are also normal.r Focal area of enhancement measuring 8.9 mm along the inferior RIGHT thalamus. Due to its configuratio n and appearance this is probably a developmental venous anomaly. No associated hemorrhage or edema. There is an additional linear area of enhancement within the RIGHT mariann which is probably an addition al smaller developmental venous angioma. No mass effect. No soft tissue masses. Dural venous sinuses are normal. Paranasal sinuses: Small amount of fluid in the RIGHT maxillary sinus. Mastoid air cells: Normal. Calvarium and scalp: Normal. Incidental note is made of a 6 mm Tornwaldt cyst. MR/MR head wo/w con [id number] IMPRESSION: 1. No acute infarct or prior hemorrhage. 2. No mass effect. 3. Focal areas of enhancement in the inferior RIGHT basal ganglia and RIGHT po ns consistent with developmental venous angiomas. No associated hemorrhage. 4. Moderate small vessel ischemic disease. More than expected for patient of t his age.
[2021-10-28] MEDS: gadobenate dimeglumine 20 mL vial IV (14:31)
== END 2021-10-28 11:27 | disposition home or self-care (01) ==
PROVIDERS: PCP Family Medicine Adult Medicine; Visit Provider Emergency Medicine
DX: I63.9 Cerebral infarction, unspecified (principal); Z86.73 Personal history of transient ischemic attack (TIA), and cerebral infarction without residual deficits
CPT/HCPCS: 70553; 93306

== ENCOUNTER 2021-11-21 06:00 | Outpatient (RCR) | payer OTHER, SELFPAY | END 2021-12-21 23:59 | disposition home or self-care (01) | LOC: SPT 06:00 | PROVIDERS: PCP Family Medicine Adult Medicine; Referring Provider Family Medicine Adult Medicine; Visit Provider Family Medicine Adult Medicine | DX: I69.998 Other sequelae following unspecified cerebrovascular disease (principal); I69.354 Hemiplegia and hemiparesis following cerebral infarction affecting left non-dominant side; R26.89 Other abnormalities of gait and mobility | CPT/HCPCS: 97110; 97112 ==

== ENCOUNTER → 2021-12-05 14:29 | Outpatient (BNVA) | payer OTHER, SELFPAY | PROVIDERS: PCP Family Medicine Adult Medicine; Visit Provider Family Medicine Adult Medicine | DX: Z13.6 Encounter for screening for cardiovascular disorders (principal) | CPT/HCPCS: 82270 ==

== ENCOUNTER → 2021-12-10 10:24 | Outpatient (BNVA) | payer OTHER, SELFPAY | PROVIDERS: PCP Family Medicine Adult Medicine; Visit Provider Family Medicine Adult Medicine | DX: E11.69 Type 2 diabetes mellitus with other specified complication (principal); E78.5 Hyperlipidemia, unspecified; Z13.6 Encounter for screening for cardiovascular disorders | CPT/HCPCS: 83036; G0328 ==

== ENCOUNTER 2021-12-22 06:00 | Outpatient (RCR) | payer OTHER, SELFPAY | END 2022-01-21 23:59 | disposition home or self-care (01) | LOC: SPT 06:00 | PROVIDERS: PCP Family Medicine Adult Medicine; Referring Provider Family Medicine Adult Medicine; Visit Provider Family Medicine Adult Medicine | DX: I69.398 Other sequelae of cerebral infarction (principal); R26.89 Other abnormalities of gait and mobility | CPT/HCPCS: 97110; 97112 ==

== ENCOUNTER → 2022-03-11 09:46 | Outpatient (BNVA) | payer OTHER, SELFPAY | PROVIDERS: PCP Family Medicine Adult Medicine; Visit Provider Family Medicine Adult Medicine | DX: I10 Essential (primary) hypertension (principal); E11.69 Type 2 diabetes mellitus with other specified complication; E78.5 Hyperlipidemia, unspecified; E66.9 Obesity, unspecified; M79.2 Neuralgia and neuritis, unspecified; I69.398 Other sequelae of cerebral infarction; R26.89 Other abnormalities of gait and mobility | CPT/HCPCS: 80053; 80061; 83036; 84443 ==

== ENCOUNTER → 2022-11-05 10:03 | Outpatient (BNVA) | payer MEDICAID, SELFPAY | PROVIDERS: PCP Family Medicine Adult Medicine; Visit Provider Family Medicine Adult Medicine | DX: I10 Essential (primary) hypertension (principal); E11.9 Type 2 diabetes mellitus without complications; M79.2 Neuralgia and neuritis, unspecified; E66.9 Obesity, unspecified; E11.69 Type 2 diabetes mellitus with other specified complication; E78.5 Hyperlipidemia, unspecified | CPT/HCPCS: 80053; 80061; 83036; 84443; 85025 ==

== ENCOUNTER → 2023-03-25 16:01 | Outpatient (BNVA) | payer MEDICAID, SELFPAY | PROVIDERS: PCP Family Medicine Adult Medicine; Visit Provider Family Medicine Adult Medicine | DX: D49.2 Neoplasm of unspecified behavior of bone, soft tissue, and skin (principal); Z13.89 Encounter for screening for other disorder | CPT/HCPCS: 88304 ==

== ENCOUNTER → 2023-04-14 11:06 | Outpatient (BNVA) | payer MEDICAID, SELFPAY | PROVIDERS: PCP Family Medicine Adult Medicine; Visit Provider Family Medicine Adult Medicine | DX: I10 Essential (primary) hypertension (principal); E11.69 Type 2 diabetes mellitus with other specified complication; E78.5 Hyperlipidemia, unspecified; I69.398 Other sequelae of cerebral infarction; R26.89 Other abnormalities of gait and mobility; C43.4 Malignant melanoma of scalp and neck | CPT/HCPCS: 80053; 80061; 83036 ==

== ENCOUNTER 2023-06-01 10:41 | Oncology outpatient (recurring) (ONCR) | payer MEDICAID, SELFPAY ==
[2023-06-01 11:57] LABS: Basophils % 0.5 %; Eosinophils # 0.2 10^3/uL (0.0-0.8); Eosinophils % 1.8 %; Hematocrit 40.3 % (37-53); Lymphocytes # 2.4 10^3/uL (0.8-4.8); Lymphocytes % 29.8 %; Mean Corpuscular HGB Conc 34.2 g/dL (30-55); Mean Corpuscular Hemoglobin 29.7 pg (27-33); Mean Corpuscular Volume 86.7 fl (82-101); Mean Platelet Volume 9.3 fL (7.4-10.4); Monocytes # 0.4 10^3/uL (0.2-0.9); Monocytes % 4.9 %; Neutrophils # 5.08 10^3/uL (1.8-7.7); Neutrophils % 62.6 %; Nucleated Red Blood Cells % 0 %; Platelet Count 205 10^3/cmm (157-399); Red Blood Count 4.65 10^6/uL (3.85-5.65); Red Cell Distribution Width 13.5 % (12.1-15.1); White Blood Count 8.12 10^3/uL (3.29-11.43)
[2023-06-01 12:26] LABS: Alanine Aminotransferase 17 U/L (0-41); Alkaline Phosphatase 94 U/L (40-130); Anion Gap 12.1 (5-19); Aspartate Amino Transferase 17 U/L (0-40); Blood Urea Nitrogen 18 mg/dL (8-23); Calcium 9.2 mg/dL (8.5-10.5); Carbon Dioxide 30 mmol/L (22-29); Chloride 99 mmol/L (98-107); Estmated Average Glucose 183; Globulin 3.2 g/dL (1.3-4.6); Glomerular Filtration Rate 86.1 mL/min (90-130); Glucose 165 mg/dL (65-115); Lactate Dehydrogenase 174 U/L (135-225); Osmolality Calculated 290 mOsm/kg (285-295); Potassium 4.1 mmol/L (3.5-5.1); Sodium 137 mmol/L (136-145); Thyroid Stimulating Hormone 1.65 uIU/mL (0.27-4.20); Total Bilirubin 0.8 mg/dL (0.15-1.2); Total Protein 7.2 g/dL (6.6-8.7)
== END 2023-06-23 23:59 | disposition home or self-care (01) ==
PROVIDERS: Internal Medicine Medical Oncology; PCP Family Medicine Adult Medicine; Visit Provider Family Medicine Adult Medicine
DX: C43.4 Malignant melanoma of scalp and neck (principal); E11.9 Type 2 diabetes mellitus without complications; R53.83 Other fatigue
CPT/HCPCS: 36415; 80053; 83036; 83615; 84443; 85025

== ENCOUNTER 2023-07-06 12:42 | Outpatient (CLI) | payer MEDICAID, SELFPAY ==
--- NOTE | 2023-07-06 12:00 | PETR_ITS ---
PROCEDURE INFORMATION: Exam: PET/CT Whole Body Exam date and time: 07/06/2023 12:22 PM Age: 62 years old Clinical indication: Condition or disease; Initial oncological staging assessment; Condition/disease: Melanoma of neck and scalp LABS AND CLINICAL REPORTS: Glucose: 91 mg/dl Treatment strategy for malignancy (PET staging): Initial Staging (PI) TECHNIQUE: Imaging protocol: Following at least four-hour fasting and following the injection of radiopharmaceutical, low dose CT images were obtained. Then, PET images were obtained. Attenuation corrected images were constructed using the CT scan. Fused images of PET and CT were reviewed. The standardized uptake values (SUV) reported below are maximum values within a region of interest, expressed in gm/ml. Exam includes the whole body. Radiopharmaceutical: 12.71 mCi F-18 FDG (Fluorodeoxyglucose), IV. Time of imaging post radiopharmaceutical administration: 1 hour Injection site: Right antecubital COMPARISON: CT angio headneck* [id number] 09/20/2021 7:50 PM FINDINGS: Brain: Visualized brain has normal physiologic uptake. Pharynx: No abnormal uptake. Larynx: No abnormal uptake. Lungs, pleura and trachea: No abnormal uptake. Heart: Normal physiologic uptake. Mediastinal space: No abnormal uptake. Liver: No abnormal uptake. Gallbladder and bile ducts: No abnormal uptake. Pancreas: No abnormal uptake. Spleen: No abnormal uptake. Adrenal glands: No abnormal uptake. Kidneys and ureters: Normal physiologic uptake. Stomach and bowel: No abnormal uptake. Vasculature: No abnormal uptake. Lymph nodes: Asymmetrically enlarged 9 mm left parotid lymph node with a max SUV of 3.7. No additional abnormal uptake within the nodes throughout the body. Bones/joints: No abnormal uptake in the visualized axial and appendicular skeleton. Soft tissues: No abnormal uptake in the visualized head, neck, chest, abdomen, pelvis, and extremities. There appears to be skin thickening and a suspected wound or bruising at the lower left oden with some asymmetric FDG uptake in this region measuring between 2.5-5.1 max SUV. PET/PET WB melanoma INITIAL [id number] IMPRESSION: 1. Asymmetrically enlarged left parotid lymph node with moderate FDG uptake, nonspecific with metastatic adenopathy a possibility given history of tumor location. 2. Skin thickening with moderate to high SUV uptake in the region of the left lower oden which could reflect inflammation from a wound/bruising. Correlate with visual inspection to exclude additional site of disease.
== END 2023-07-06 12:43 | disposition home or self-care (01) ==
LOC: RAD 12:43
PROVIDERS: PCP Family Medicine Adult Medicine; Visit Provider Internal Medicine Medical Oncology
DX: C43.4 Malignant melanoma of scalp and neck (principal); R93.6 Abnormal findings on diagnostic imaging of limbs; R23.4 Changes in skin texture
CPT/HCPCS: 78816; A9552

== ENCOUNTER 2023-07-19 08:01 | Oncology outpatient (recurring) (ONCR) | payer MEDICAID, SELFPAY ==
[2023-07-19 08:55] LABS: Basophils % 0.6 %; Eosinophils # 0.1 10^3/uL (0.0-0.8); Eosinophils % 1.3 %; Hematocrit 37.3 % (37-53); Lymphocytes # 2.2 10^3/uL (0.8-4.8); Mean Corpuscular HGB Conc 33.2 g/dL (30-55); Mean Corpuscular Hemoglobin 29.4 pg (27-33); Mean Corpuscular Volume 88.4 fl (82-101); Mean Platelet Volume 9.4 fL (7.4-10.4); Monocytes # 0.4 10^3/uL (0.2-0.9); Monocytes % 5.6 %; Neutrophils # 4.06 10^3/uL (1.8-7.7); Neutrophils % 60.2 %; Nucleated Red Blood Cells % 0 %; Platelet Count 200 10^3/cmm (157-399); Red Blood Count 4.22 10^6/uL (3.85-5.65); White Blood Count 6.75 10^3/uL (3.29-11.43)
[2023-07-19 09:22] LABS: Alanine Aminotransferase 18 U/L (0-41); Albumin Level 3.9 g/dL (3.5-5.2); Alkaline Phosphatase 89 U/L (40-130); Anion Gap 14.1 (5-19); Aspartate Amino Transferase 20 U/L (0-40); Blood Urea Nitrogen 18 mg/dL (8-23); Calcium 8.3 mg/dL (8.5-10.5); Carbon Dioxide 24 mmol/L (22-29); Chloride 99 mmol/L (98-107); Glomerular Filtration Rate 68.3 mL/min (90-130); Glucose 114 mg/dL (65-115); Osmolality Calculated 279 mOsm/kg (285-295); Potassium 4.1 mmol/L (3.5-5.1); Sodium 133 mmol/L (136-145); Thyroid Stimulating Hormone 1.95 uIU/mL (0.27-4.20); Total Bilirubin 0.5 mg/dL (0.15-1.2); Total Protein 6.9 g/dL (6.6-8.7)
[2023-07-19] MEDS: nivolumab 480 MG in sodium chloride 0.9% 250 ML 596 MG IV (11:03)
[2023-07-19 12:01] VITALS: BP 117/71; PULSE 62; RESP 17; TEMP 36.2; O2SAT 98
== END 2023-07-19 23:59 | disposition home or self-care (01) ==
PROVIDERS: Nurse Practitioner Family; PCP Family Medicine Adult Medicine; Visit Provider Family Medicine Adult Medicine
DX: Z51.12 Encounter for antineoplastic immunotherapy (principal); C43.4 Malignant melanoma of scalp and neck
CPT/HCPCS: 80053; 84443; 85025; 96413; A4222; J7050; J9299

== ENCOUNTER 2023-08-16 11:45 | Oncology outpatient (recurring) (ONCR) | payer MEDICAID, SELFPAY ==
[2023-08-16 12:31] LABS: Basophils % 0.5 %; Eosinophils # 0.1 10^3/uL (0.0-0.8); Eosinophils % 2.2 %; Hematocrit 37.9 % (37-53); Lymphocytes # 1.7 10^3/uL (0.8-4.8); Lymphocytes % 25.9 %; Mean Corpuscular HGB Conc 32.7 g/dL (30-55); Mean Corpuscular Hemoglobin 28.7 pg (27-33); Mean Corpuscular Volume 87.7 fl (82-101); Mean Platelet Volume 9.3 fL (7.4-10.4); Monocytes # 0.4 10^3/uL (0.2-0.9); Monocytes % 6.1 %; Neutrophils # 4.16 10^3/uL (1.8-7.7); Nucleated Red Blood Cells % 0 %; Platelet Count 194 10^3/cmm (157-399); Red Blood Count 4.32 10^6/uL (3.85-5.65); Red Cell Distribution Width 14.3 % (12.1-15.1)
[2023-08-16 12:59] LABS: Alanine Aminotransferase 18 U/L (0-41); Albumin Level 4.1 g/dL (3.5-5.2); Alkaline Phosphatase 93 U/L (40-130); Aspartate Amino Transferase 20 U/L (0-40); Blood Urea Nitrogen 18 mg/dL (8-23); Calcium 8.9 mg/dL (8.5-10.5); Carbon Dioxide 28 mmol/L (22-29); Chloride 101 mmol/L (98-107); Glomerular Filtration Rate 98.6 mL/min (90-130); Glucose 131 mg/dL (65-115); Osmolality Calculated 290 mOsm/kg (285-295); Sodium 138 mmol/L (136-145); Thyroid Stimulating Hormone 1.28 uIU/mL (0.27-4.20); Total Bilirubin 0.9 mg/dL (0.15-1.2); Total Protein 7.1 g/dL (6.6-8.7)
[2023-08-16] MEDS: nivolumab 480 MG in sodium chloride 0.9% 250 ML 596 MG IV (14:07)
[2023-08-16 14:47] VITALS: BP 113/75; PULSE 70; RESP 18; O2SAT 99
== END 2023-08-16 23:59 | disposition home or self-care (01) ==
PROVIDERS: Nurse Practitioner Family; PCP Family Medicine Adult Medicine; Visit Provider Family Medicine Adult Medicine
DX: C43.4 Malignant melanoma of scalp and neck (principal); Z51.12 Encounter for antineoplastic immunotherapy
CPT/HCPCS: 80053; 84443; 85025; 96413; A4222; J7050; J9299

== ENCOUNTER 2023-09-13 09:19 | Oncology outpatient (recurring) (ONCR) | payer MEDICAID, SELFPAY ==
[2023-09-13 09:43] LABS: Basophils # 0.1 10^3/uL (0.0-0.1); Basophils % 0.8 %; Eosinophils # 0.3 10^3/uL (0.0-0.8); Eosinophils % 3.1 %; Hematocrit 39.3 % (37-53); Lymphocytes # 1.9 10^3/uL (0.8-4.8); Lymphocytes % 23.1 %; Mean Corpuscular HGB Conc 33.6 g/dL (30-55); Mean Corpuscular Hemoglobin 28.8 pg (27-33); Mean Corpuscular Volume 85.6 fl (82-101); Mean Platelet Volume 9.4 fL (7.4-10.4); Monocytes # 0.5 10^3/uL (0.2-0.9); Monocytes % 5.7 %; Neutrophils % 67.1 %; Nucleated Red Blood Cells % 0 %; Platelet Count 206 10^3/cmm (157-399); Red Blood Count 4.59 10^6/uL (3.85-5.65); White Blood Count 8.36 10^3/uL (3.29-11.43)
[2023-09-13 10:09] LABS: Alanine Aminotransferase 19 U/L (0-41); Albumin Level 4.1 g/dL (3.5-5.2); Alkaline Phosphatase 101 U/L (40-130); Anion Gap 12.7 (5-19); Aspartate Amino Transferase 19 U/L (0-40); Blood Urea Nitrogen 18 mg/dL (8-23); Calcium 8.8 mg/dL (8.5-10.5); Carbon Dioxide 29 mmol/L (22-29); Chloride 98 mmol/L (98-107); Globulin 3.2 g/dL (1.3-4.6); Glomerular Filtration Rate 76.2 mL/min (90-130); Glucose 156 mg/dL (65-115); Osmolality Calculated 287 mOsm/kg (285-295); Potassium 3.7 mmol/L (3.5-5.1); Sodium 136 mmol/L (136-145); Thyroid Stimulating Hormone 1.41 uIU/mL (0.27-4.20); Total Bilirubin 0.9 mg/dL (0.15-1.2); Total Protein 7.3 g/dL (6.6-8.7)
[2023-09-13] MEDS: nivolumab 480 MG in sodium chloride 0.9% 250 ML 596 MG IV (12:47)
[2023-09-13 13:26] VITALS: BP 122/74; PULSE 68; RESP 18; TEMP 36.4; O2SAT 98
== END 2023-09-13 23:59 | disposition home or self-care (01) ==
PROVIDERS: Internal Medicine Medical Oncology; PCP Family Medicine Adult Medicine; Visit Provider Family Medicine Adult Medicine
DX: C43.4 Malignant melanoma of scalp and neck (principal); Z51.12 Encounter for antineoplastic immunotherapy; Z79.899 Other long term (current) drug therapy
CPT/HCPCS: 80053; 84443; 85025; 96413; A4222; J7050; J9299

== ENCOUNTER → 2023-10-05 11:36 | Outpatient (BNVA) | payer MEDICAID, SELFPAY | PROVIDERS: PCP Family Medicine Adult Medicine; Visit Provider Family Medicine Adult Medicine | DX: I10 Essential (primary) hypertension (principal); E11.42 Type 2 diabetes mellitus with diabetic polyneuropathy; C43.4 Malignant melanoma of scalp and neck | CPT/HCPCS: 80053; 83036; 84443; 85025 ==

== ENCOUNTER 2023-10-14 08:48 | Oncology outpatient (recurring) (ONCR) | payer MEDICAID, SELFPAY ==
[2023-10-14 09:08] LABS: Basophils # 0.1 10^3/uL (0.0-0.1); Basophils % 0.8 %; Eosinophils # 0.3 10^3/uL (0.0-0.8); Eosinophils % 4.4 %; Hematocrit 36.9 % (37-53); Lymphocytes % 27.4 %; Mean Corpuscular HGB Conc 33.1 g/dL (30-55); Mean Corpuscular Hemoglobin 28.9 pg (27-33); Mean Corpuscular Volume 87.4 fl (82-101); Mean Platelet Volume 9.6 fL (7.4-10.4); Monocytes # 0.5 10^3/uL (0.2-0.9); Monocytes % 6.4 %; Neutrophils # 4.46 10^3/uL (1.8-7.7); Neutrophils % 60.7 %; Nucleated Red Blood Cells % 0 %; Platelet Count 186 10^3/cmm (157-399); Red Blood Count 4.22 10^6/uL (3.85-5.65); Red Cell Distribution Width 13.9 % (12.1-15.1); White Blood Count 7.34 10^3/uL (3.29-11.43)
[2023-10-14 09:29] LABS: Alanine Aminotransferase 16 U/L (0-41); Albumin Level 3.7 g/dL (3.5-5.2); Alkaline Phosphatase 95 U/L (40-130); Aspartate Amino Transferase 18 U/L (0-40); Blood Urea Nitrogen 18 mg/dL (8-23); Carbon Dioxide 28 mmol/L (22-29); Chloride 102 mmol/L (98-107); Glomerular Filtration Rate 86.1 mL/min (90-130); Glucose 126 mg/dL (65-115); Osmolality Calculated 289 mOsm/kg (285-295); Sodium 138 mmol/L (136-145); Total Bilirubin 0.4 mg/dL (0.15-1.2); Total Protein 6.7 g/dL (6.6-8.7)
[2023-10-14 09:30] LABS: Anion Gap 11.8 (5-19); Potassium 3.8 mmol/L (3.5-5.1)
[2023-10-14] MEDS: nivolumab 480 MG in sodium chloride 0.9% 250 ML 596 MG IV (11:21)
[2023-10-14 11:54] VITALS: BP 115/67; PULSE 58; RESP 18; TEMP 36.6; O2SAT 96
== END 2023-10-14 23:59 | disposition home or self-care (01) ==
PROVIDERS: Internal Medicine; PCP Family Medicine Adult Medicine; Visit Provider Family Medicine Adult Medicine
DX: Z51.12 Encounter for antineoplastic immunotherapy (principal); C43.4 Malignant melanoma of scalp and neck
CPT/HCPCS: 80053; 85025; 96413; A4222; J7050; J9299

== ENCOUNTER 2023-11-11 09:56 | Oncology outpatient (recurring) (ONCR) | payer MEDICAID, SELFPAY ==
[2023-11-11 10:20] LABS: Basophils # 0.1 10^3/uL (0.0-0.1); Basophils % 0.7 %; Eosinophils # 0.4 10^3/uL (0.0-0.8); Eosinophils % 4.9 %; Hematocrit 37.6 % (37-53); Lymphocytes # 1.8 10^3/uL (0.8-4.8); Lymphocytes % 25.5 %; Mean Corpuscular HGB Conc 33.5 g/dL (30-55); Mean Corpuscular Hemoglobin 28.8 pg (27-33); Mean Platelet Volume 9.5 fL (7.4-10.4); Monocytes # 0.4 10^3/uL (0.2-0.9); Monocytes % 5.4 %; Neutrophils # 4.54 10^3/uL (1.8-7.7); Neutrophils % 63.2 %; Nucleated Red Blood Cells % 0 %; Platelet Count 169 10^3/cmm (157-399); Red Blood Count 4.37 10^6/uL (3.85-5.65); Red Cell Distribution Width 13.9 % (12.1-15.1); White Blood Count 7.18 10^3/uL (3.29-11.43)
[2023-11-11 10:50] LABS: Alanine Aminotransferase 17 U/L (0-41); Alkaline Phosphatase 90 U/L (40-130); Anion Gap 13.3 (5-19); Aspartate Amino Transferase 19 U/L (0-40); Blood Urea Nitrogen 17 mg/dL (8-23); Calcium 8.3 mg/dL (8.5-10.5); Carbon Dioxide 30 mmol/L (22-29); Chloride 102 mmol/L (98-107); Globulin 2.9 g/dL (1.3-4.6); Glomerular Filtration Rate 85.8 mL/min (90-130); Glucose 163 mg/dL (65-115); Osmolality Calculated 297 mOsm/kg (285-295); Potassium 4.3 mmol/L (3.5-5.1); Sodium 141 mmol/L (136-145); Total Bilirubin 0.6 mg/dL (0.15-1.2); Total Protein 6.9 g/dL (6.6-8.7)
[2023-11-11] MEDS: nivolumab 480 MG in sodium chloride 0.9% 250 ML 596 MG IV (12:16)
[2023-11-11 13:03] VITALS: BP 108/71; PULSE 61; RESP 17; TEMP 36.1; O2SAT 96
== END 2023-11-11 23:59 | disposition home or self-care (01) ==
PROVIDERS: Internal Medicine; PCP Family Medicine Adult Medicine; Visit Provider Family Medicine Adult Medicine
DX: C43.4 Malignant melanoma of scalp and neck (principal); Z51.12 Encounter for antineoplastic immunotherapy; Z53.9 Procedure and treatment not carried out, unspecified reason
CPT/HCPCS: 80053; 84443; 85025; 96413; A4222; J7050; J9299

== ENCOUNTER 2023-12-09 11:13 | Oncology outpatient (recurring) (ONCR) | payer MEDICAID, SELFPAY ==
[2023-12-09 11:42] LABS: Basophils # 0.1 10^3/uL (0.0-0.1); Basophils % 0.8 %; Eosinophils # 0.4 10^3/uL (0.0-0.8); Eosinophils % 5.5 %; Hematocrit 36.1 % (37-53); Lymphocytes # 2.1 10^3/uL (0.8-4.8); Lymphocytes % 28.4 %; Mean Corpuscular HGB Conc 33.2 g/dL (30-55); Mean Corpuscular Hemoglobin 28.7 pg (27-33); Mean Corpuscular Volume 86.4 fl (82-101); Mean Platelet Volume 9.1 fL (7.4-10.4); Monocytes # 0.4 10^3/uL (0.2-0.9); Monocytes % 5.2 %; Neutrophils # 4.46 10^3/uL (1.8-7.7); Neutrophils % 59.8 %; Nucleated Red Blood Cells % 0 %; Platelet Count 155 10^3/cmm (157-399); Red Blood Count 4.18 10^6/uL (3.85-5.65); Red Cell Distribution Width 14.1 % (12.1-15.1); White Blood Count 7.46 10^3/uL (3.29-11.43)
[2023-12-09 12:14] LABS: Alanine Aminotransferase 15 U/L (0-41); Albumin Level 3.9 g/dL (3.5-5.2); Alkaline Phosphatase 91 U/L (40-130); Anion Gap 15.1 (5-19); Aspartate Amino Transferase 18 U/L (0-40); Blood Urea Nitrogen 21 mg/dL (8-23); Calcium 8.1 mg/dL (8.5-10.5); Carbon Dioxide 26 mmol/L (22-29); Chloride 100 mmol/L (98-107); Globulin 2.8 g/dL (1.3-4.6); Glomerular Filtration Rate 68.1 mL/min (90-130); Glucose 167 mg/dL (65-115); Osmolality Calculated 291 mOsm/kg (285-295); Potassium 4.1 mmol/L (3.5-5.1); Sodium 137 mmol/L (136-145); Thyroid Stimulating Hormone 1.52 uIU/mL (0.27-4.20); Total Bilirubin 0.6 mg/dL (0.15-1.2); Total Protein 6.7 g/dL (6.6-8.7)
[2023-12-09] MEDS: nivolumab 480 MG in sodium chloride 0.9% 250 ML 596 MG IV (13:45)
[2023-12-09 14:29] VITALS: BP 111/64; PULSE 64; RESP 18; TEMP 36.5; O2SAT 95
== END 2023-12-09 23:59 | disposition home or self-care (01) ==
PROVIDERS: Internal Medicine Medical Oncology; PCP Family Medicine Adult Medicine; Visit Provider Family Medicine Adult Medicine
DX: C43.4 Malignant melanoma of scalp and neck (principal); Z53.9 Procedure and treatment not carried out, unspecified reason; Z79.899 Other long term (current) drug therapy; Z51.12 Encounter for antineoplastic immunotherapy
CPT/HCPCS: 80053; 84443; 85025; 96365; A4222; J7050; J9299

== ENCOUNTER 2024-01-06 12:47 | Oncology outpatient (recurring) (ONCR) | payer MEDICAID, SELFPAY ==
[2024-01-06 13:12] LABS: Basophils # 0.1 10^3/uL (0.0-0.1); Basophils % 0.8 %; Eosinophils # 0.3 10^3/uL (0.0-0.8); Eosinophils % 4.8 %; Hematocrit 36.8 % (37-53); Lymphocytes # 1.8 10^3/uL (0.8-4.8); Lymphocytes % 28.1 %; Mean Corpuscular HGB Conc 33.7 g/dL (30-55); Mean Corpuscular Hemoglobin 29.3 pg (27-33); Mean Platelet Volume 9.1 fL (7.4-10.4); Monocytes # 0.3 10^3/uL (0.2-0.9); Monocytes % 5.3 %; Neutrophils # 3.88 10^3/uL (1.8-7.7); Neutrophils % 60.7 %; Nucleated Red Blood Cells % 0 %; Platelet Count 163 10^3/cmm (157-399); Red Blood Count 4.23 10^6/uL (3.85-5.65); Red Cell Distribution Width 14.3 % (12.1-15.1)
[2024-01-06 13:40] LABS: Alanine Aminotransferase 22 U/L (0-41); Alkaline Phosphatase 84 U/L (40-130); Anion Gap 13.9 (5-19); Aspartate Amino Transferase 20 U/L (0-40); Blood Urea Nitrogen 15 mg/dL (8-23); Calcium 8.7 mg/dL (8.5-10.5); Carbon Dioxide 29 mmol/L (22-29); Chloride 101 mmol/L (98-107); Globulin 2.9 g/dL (1.3-4.6); Glomerular Filtration Rate 85.8 mL/min (90-130); Glucose 195 mg/dL (65-115); Osmolality Calculated 296 mOsm/kg (285-295); Potassium 3.9 mmol/L (3.5-5.1); Sodium 140 mmol/L (136-145); Total Bilirubin 0.5 mg/dL (0.15-1.2); Total Protein 6.9 g/dL (6.6-8.7)
[2024-01-06] MEDS: nivolumab 480 MG in sodium chloride 0.9% 250 ML 596 MG IV (15:45)
[2024-01-06 16:24] VITALS: BP 141/80; PULSE 76; RESP 164; O2SAT 96
== END 2024-01-06 23:59 | disposition home or self-care (01) ==
PROVIDERS: Nurse Practitioner Family; PCP Family Medicine Adult Medicine; Visit Provider Family Medicine Adult Medicine
DX: C43.4 Malignant melanoma of scalp and neck (principal); Z51.12 Encounter for antineoplastic immunotherapy; Z79.899 Other long term (current) drug therapy; Z79.620 Long term (current) use of immunosuppressive biologic
CPT/HCPCS: 36415; 80053; 85025; 96365; A4222; J7050; J9299

== ENCOUNTER 2024-02-03 08:10 | Oncology outpatient (recurring) (ONCR) | payer MEDICAID, SELFPAY ==
[2024-02-03 08:33] LABS: Basophils # 0.1 10^3/uL (0.0-0.1); Basophils % 0.7 %; Eosinophils # 0.3 10^3/uL (0.0-0.8); Eosinophils % 4.8 %; Hematocrit 39.2 % (37-53); Lymphocytes # 1.8 10^3/uL (0.8-4.8); Lymphocytes % 25.8 %; Mean Corpuscular HGB Conc 32.9 g/dL (30-55); Mean Corpuscular Hemoglobin 29.2 pg (27-33); Mean Corpuscular Volume 88.7 fl (82-101); Mean Platelet Volume 9.6 fL (7.4-10.4); Monocytes # 0.4 10^3/uL (0.2-0.9); Monocytes % 6.1 %; Neutrophils # 4.38 10^3/uL (1.8-7.7); Neutrophils % 62.2 %; Nucleated Red Blood Cells % 0 %; Platelet Count 182 10^3/cmm (157-399); Red Blood Count 4.42 10^6/uL (3.85-5.65); Red Cell Distribution Width 14.6 % (12.1-15.1); White Blood Count 7.05 10^3/uL (3.29-11.43)
[2024-02-03 08:51] LABS: Alanine Aminotransferase 28 U/L (0-41); Albumin Level 4.2 g/dL (3.5-5.2); Alkaline Phosphatase 90 U/L (40-130); Anion Gap 13.2 (5-19); Aspartate Amino Transferase 22 U/L (0-40); Blood Urea Nitrogen 19 mg/dL (8-23); Calcium 8.7 mg/dL (8.5-10.5); Carbon Dioxide 29 mmol/L (22-29); Chloride 101 mmol/L (98-107); Globulin 2.9 g/dL (1.3-4.6); Glucose 192 mg/dL (65-115); Osmolality Calculated 295 mOsm/kg (285-295); Potassium 4.2 mmol/L (3.5-5.1); Sodium 139 mmol/L (136-145); Total Bilirubin 0.6 mg/dL (0.15-1.2); Total Protein 7.1 g/dL (6.6-8.7)
[2024-02-03] MEDS: nivolumab 480 MG in sodium chloride 0.9% 250 ML 596 MG IV (10:50)
[2024-02-03 11:29] VITALS: BP 100/72; PULSE 62; RESP 17; TEMP 35.9; O2SAT 97
[2024-02-03 12:53] LABS: Thyroid Stimulating Hormone 1.44 uIU/mL (0.27-4.20)
== END 2024-02-03 23:59 | disposition home or self-care (01) ==
PROVIDERS: Nurse Practitioner Family; PCP Family Medicine Adult Medicine; Visit Provider Family Medicine Adult Medicine
DX: Z51.12 Encounter for antineoplastic immunotherapy; C43.4 Malignant melanoma of scalp and neck; I10 Essential (primary) hypertension
CPT/HCPCS: 80053; 84443; 85025; 96413; A4222; J7050; J9299

== ENCOUNTER 2024-03-30 11:53 | Oncology outpatient (recurring) (ONCR) | payer MEDICAID, SELFPAY ==
[2024-03-30 12:33] LABS: Basophils # 0.1 10^3/uL (0.0-0.1); Eosinophils # 0.3 10^3/uL (0.0-0.8); Eosinophils % 4.6 %; Hematocrit 38.5 % (37-53); Lymphocytes # 1.9 10^3/uL (0.8-4.8); Lymphocytes % 25.4 %; Mean Corpuscular HGB Conc 33.2 g/dL (30-55); Mean Corpuscular Hemoglobin 28.6 pg (27-33); Mean Corpuscular Volume 86.1 fl (82-101); Mean Platelet Volume 9.7 fL (7.4-10.4); Monocytes # 0.3 10^3/uL (0.2-0.9); Monocytes % 4.6 %; Neutrophils % 64.1 %; Nucleated Red Blood Cells % 0 %; Platelet Count 198 10^3/cmm (157-399); Red Blood Count 4.47 10^6/uL (3.85-5.65); Red Cell Distribution Width 13.7 % (12.1-15.1); White Blood Count 7.33 10^3/uL (3.29-11.43)
[2024-03-30 13:07] LABS: Alanine Aminotransferase 17 U/L (0-41); Albumin Level 4.1 g/dL (3.5-5.2); Alkaline Phosphatase 92 U/L (40-130); Anion Gap 12.2 (5-19); Aspartate Amino Transferase 16 U/L (0-40); Blood Urea Nitrogen 16 mg/dL (8-23); Calcium 8.6 mg/dL (8.5-10.5); Carbon Dioxide 29 mmol/L (22-29); Chloride 100 mmol/L (98-107); Creatinine Clr Calc Pharmacy 104.3972; Globulin 2.3 g/dL (1.3-4.6); Glucose 202 mg/dL (65-115); Osmolality Calculated 291 mOsm/kg (285-295); Potassium 4.2 mmol/L (3.5-5.1); Sodium 137 mmol/L (136-145); Thyroid Stimulating Hormone 1.41 uIU/mL (0.27-4.20); Total Bilirubin 0.6 mg/dL (0.15-1.2); Total Protein 6.4 g/dL (6.6-8.7)
[2024-03-30] MEDS: nivolumab 480 MG in sodium chloride 0.9% 250 ML 596 MG IV (13:58)
[2024-03-30 14:39] VITALS: BP 106/69; PULSE 65; RESP 16; TEMP 36.9; O2SAT 94
== END 2024-03-30 23:59 | disposition home or self-care (01) ==
PROVIDERS: PCP Family Medicine Adult Medicine; Visit Provider Internal Medicine Hematology & Oncology
DX: C43.4 Malignant melanoma of scalp and neck (principal); E11.9 Type 2 diabetes mellitus without complications; R53.83 Other fatigue; Z51.12 Encounter for antineoplastic immunotherapy
CPT/HCPCS: 80053; 84443; 85025; 96413; A4222; J7050; J9299

== ENCOUNTER 2024-04-27 10:43 | Oncology outpatient (recurring) (ONCR) | payer MEDICAID, SELFPAY ==
[2024-04-27 11:03] LABS: Basophils # 0.1 10^3/uL (0.0-0.1); Basophils % 0.8 %; Eosinophils # 0.3 10^3/uL (0.0-0.8); Eosinophils % 4.3 %; Hematocrit 39.1 % (37-53); Lymphocytes # 1.9 10^3/uL (0.8-4.8); Lymphocytes % 25.5 %; Mean Corpuscular HGB Conc 33.5 g/dL (30-55); Mean Corpuscular Hemoglobin 29.6 pg (27-33); Mean Corpuscular Volume 88.3 fl (82-101); Mean Platelet Volume 9.2 fL (7.4-10.4); Monocytes # 0.4 10^3/uL (0.2-0.9); Monocytes % 6.1 %; Neutrophils # 4.57 10^3/uL (1.8-7.7); Nucleated Red Blood Cells % 0 %; Platelet Count 196 10^3/cmm (157-399); Red Blood Count 4.43 10^6/uL (3.85-5.65); Red Cell Distribution Width 13.6 % (12.1-15.1); White Blood Count 7.25 10^3/uL (3.29-11.43)
[2024-04-27 11:27] LABS: Alanine Aminotransferase 14 U/L (0-41); Albumin Level 4.1 g/dL (3.5-5.2); Alkaline Phosphatase 97 U/L (40-130); Anion Gap 11.9 (5-19); Aspartate Amino Transferase 16 U/L (0-40); Blood Urea Nitrogen 21 mg/dL (8-23); Calcium 8.9 mg/dL (8.5-10.5); Carbon Dioxide 30 mmol/L (22-29); Chloride 100 mmol/L (98-107); Creatinine Clr Calc Pharmacy 105.0691; Globulin 3.2 g/dL (1.3-4.6); Glucose 188 mg/dL (65-115); Lactate Dehydrogenase 175 U/L (135-225); Osmolality Calculated 294 mOsm/kg (285-295); Potassium 3.9 mmol/L (3.5-5.1); Sodium 138 mmol/L (136-145); Thyroid Stimulating Hormone 1.81 uIU/mL (0.27-4.20); Total Bilirubin 0.5 mg/dL (0.15-1.2); Total Protein 7.3 g/dL (6.6-8.7)
[2024-04-27] MEDS: nivolumab 480 MG in sodium chloride 0.9% 250 ML 596 MG IV (13:38)
[2024-04-27 14:31] VITALS: BP 146/84; PULSE 100; RESP 16; TEMP 36.6; O2SAT 99
== END 2024-04-27 23:59 | disposition home or self-care (01) ==
PROVIDERS: PCP Family Medicine Adult Medicine; Visit Provider Internal Medicine Hematology & Oncology
DX: C43.4 Malignant melanoma of scalp and neck (principal); Z79.620 Long term (current) use of immunosuppressive biologic; Z51.12 Encounter for antineoplastic immunotherapy
CPT/HCPCS: 80053; 83615; 84443; 85025; 96365; 96413; A4222; J7050; J9299

== ENCOUNTER 2024-05-12 09:04 | Oncology outpatient (recurring) (ONCR) | payer MEDICAID, SELFPAY ==
--- NOTE | 2024-05-12 09:30 | PETR_ITS ---
PROCEDURE INFORMATION: Exam: PET/CT Whole Body Exam date and time: 05/12/2024 10:17 AM Age: 63 years old Clinical indication: Condition or disease; Primary cancer: Malignant melanoma; Additional info: Followup post treatment LABS AND CLINICAL REPORTS: Glucose: 158 mg/dl Treatment strategy for malignancy (PET staging): Restaging (PS) TECHNIQUE: Imaging protocol: Following at least four-hour fasting and following the injection of radiopharmaceutical, low dose CT images were obtained. Then, PET images were obtained. Attenuation corrected images were constructed using the CT scan. Fused images of PET and CT were reviewed. The standardized uptake values (SUV) reported below are maximum values within a region of interest, expressed in gm/ml. Exam includes the whole body. SUV normalization method: BodyWeight Radiopharmaceutical: 11.77 mCi F-18 FDG (Fluorodeoxyglucose), IV. Time of imaging post radiopharmaceutical administration: 47 minutes Injection site: LEFT AC COMPARISON: 1. PT PET WB melanoma INITIAL [id number] 07/06/2023 12:[address] angio headneck* [id number] 09/20/2021 7:50 PM FINDINGS: Brain: Visualized brain has normal physiologic uptake. Pharynx: No abnormal uptake. Larynx: No abnormal uptake. Lungs, pleura and trachea: No abnormal uptake. Heart: Normal physiologic uptake. Coronary arteries: Mild coronary artery calcification. Mediastinal space: No abnormal uptake. Liver: No abnormal uptake. Gallbladder and biliary ducts: No abnormal uptake. Cholelithiasis. Pancreas: No abnormal uptake. Spleen: No abnormal uptake. Punctate calcified granulomata. Adrenal glands: No abnormal uptake. Kidneys and ureters: Normal physiologic uptake. Stomach and bowel: No abnormal uptake. Vasculature: No abnormal uptake. Mild systemic atherosclerotic calcification with stable ascending aortic ectasia measuring 4.2 cm. Lymph nodes: Left posterior periparotid lymph node measuring 7 mm is stable in size from August 2021 and shows low-level FDG uptake with SUV max 3.3, previously 3.7. Otherwise no lymphadenopathy in the head, neck, chest, abdomen, pelvis, and extremities. Skeleton: No abnormal uptake in the visualized axial and appendicular skeleton. Soft tissues: Small fat containing umbilical and bilateral inguinal hernias. Mildly decreased left pretibial subcutaneous stranding and dermal thickening with decreased FDG uptake showing SUV max 3.4, previously 5.5. METRICS: Mediastinal blood pool: SUV mean 2.7 Liver uptake: SUV mean 3.1 PET/PET WB melanoma SUBSEQ [id number] IMPRESSION: 1. Stable size left posterior periparotid lymph node with slightly decreased low-level FDG uptake, favor reactive. 2. Mildly decreased left pretibial subcutaneous stranding and dermal thickening with decreased low-level FDG uptake. 3. Additional chronic and incidental findings as above.
== END 2024-05-23 23:59 | disposition home or self-care (01) ==
LOC: RAD 09:15 → ONCMED 09:33
PROVIDERS: PCP Family Medicine Adult Medicine; Visit Provider Nurse Practitioner
DX: C43.4 Malignant melanoma of scalp and neck (principal); E11.9 Type 2 diabetes mellitus without complications; R53.83 Other fatigue
CPT/HCPCS: 78816; A9552

== ENCOUNTER 2024-05-25 08:22 | Oncology outpatient (recurring) (ONCR) | payer MEDICAID, SELFPAY ==
[2024-05-25 09:01] LABS: Basophils # 0.1 10^3/uL (0.0-0.1); Basophils % 0.7 %; Eosinophils # 0.3 10^3/uL (0.0-0.8); Eosinophils % 3.6 %; Hematocrit 38.1 % (37-53); Lymphocytes # 2.1 10^3/uL (0.8-4.8); Lymphocytes % 25.9 %; Mean Corpuscular HGB Conc 33.3 g/dL (30-55); Mean Corpuscular Hemoglobin 28.8 pg (27-33); Mean Corpuscular Volume 86.4 fl (82-101); Mean Platelet Volume 9.7 fL (7.4-10.4); Monocytes # 0.4 10^3/uL (0.2-0.9); Monocytes % 4.8 %; Neutrophils # 5.33 10^3/uL (1.8-7.7); Neutrophils % 64.8 %; Nucleated Red Blood Cells % 0 %; Platelet Count 186 10^3/cmm (157-399); Red Blood Count 4.41 10^6/uL (3.85-5.65); Red Cell Distribution Width 13.5 % (12.1-15.1); White Blood Count 8.25 10^3/uL (3.29-11.43)
[2024-05-25 09:26] LABS: Alanine Aminotransferase 20 U/L (0-41); Albumin Level 3.8 g/dL (3.5-5.2); Alkaline Phosphatase 106 U/L (40-130); Aspartate Amino Transferase 20 U/L (0-40); Blood Urea Nitrogen 23 mg/dL (8-23); Calcium 8.5 mg/dL (8.5-10.5); Carbon Dioxide 23 mmol/L (22-29); Chloride 98 mmol/L (98-107); Creatinine Clr Calc Pharmacy 116.4392; Globulin 2.9 g/dL (1.3-4.6); Glomerular Filtration Rate 85.8 mL/min (90-130); Glucose 210 mg/dL (65-115); Osmolality Calculated 288 mOsm/kg (285-295); Sodium 134 mmol/L (136-145); Thyroid Stimulating Hormone 1.92 uIU/mL (0.27-4.20); Total Bilirubin 0.6 mg/dL (0.15-1.2); Total Protein 6.7 g/dL (6.6-8.7)
[2024-05-25 09:27] LABS: Anion Gap 16.8 (5-19)
[2024-05-25 09:28] LABS: Potassium 3.8 mmol/L (3.5-5.1)
[2024-05-25] MEDS: nivolumab 480 MG in sodium chloride 0.9% 250 ML 596 MG IV (10:52)
== END 2024-05-25 23:59 | disposition home or self-care (01) ==
PROVIDERS: PCP Family Medicine Adult Medicine; Visit Provider Nurse Practitioner
DX: C43.4 Malignant melanoma of scalp and neck (principal); E11.9 Type 2 diabetes mellitus without complications; R53.83 Other fatigue; Z51.12 Encounter for antineoplastic immunotherapy; Z79.899 Other long term (current) drug therapy
CPT/HCPCS: 36415; 80053; 84443; 85025; 96413; A4222; J7050; J9299

== ENCOUNTER → 2024-05-26 15:39 | Outpatient (BNVA) | payer MEDICAID, SELFPAY | PROVIDERS: PCP Family Medicine; Visit Provider Family Medicine | DX: E11.42 Type 2 diabetes mellitus with diabetic polyneuropathy (principal); E11.69 Type 2 diabetes mellitus with other specified complication; E78.5 Hyperlipidemia, unspecified; I10 Essential (primary) hypertension; E66.9 Obesity, unspecified; M79.2 Neuralgia and neuritis, unspecified | CPT/HCPCS: 80061; 82043; 82607; 83036 ==

== ENCOUNTER 2024-05-29 13:02 | Outpatient (CLI) | payer MEDICAID, SELFPAY ==
--- NOTE | 2024-05-29 13:08 | XRR_ITS ---
PROCEDURE INFORMATION: Exam: XR Cervical Spine Exam date and time: 05/29/2024 1:18 PM Age: 63 years old Clinical indication: Neck pain; Patient HX: Constant numbness and limited rom in neck and down left side into fingers and toes, HX of possible stroke 2 yrs ago; Additional info: L sided weakness; Cervical osteoarthritis TECHNIQUE: Imaging protocol: Radiologic exam of the cervical spine. Views: 2 or 3 views. COMPARISON: PT PET WB melanoma SUBSEQ [id number] 05/12/2024 10:17 AM FINDINGS: Tubes, catheters and devices: Surgical clips in the right neck. Bones/joints: Normal. No acute fracture. Normal alignment. Soft tissues: Unremarkable. XR/XR cervical spine 3V* [id number] IMPRESSION: No acute findings.
== END 2024-05-29 13:03 | disposition home or self-care (01) ==
LOC: RAD 13:06
PROVIDERS: PCP Family Medicine; Visit Provider Family Medicine
DX: G95.9 Disease of spinal cord, unspecified (principal); M79.2 Neuralgia and neuritis, unspecified
CPT/HCPCS: 72040

== ENCOUNTER 2024-06-22 09:30 | Oncology outpatient (recurring) (ONCR) | payer MEDICAID, SELFPAY ==
--- NOTE | 2024-05-31 08:00 | MR_ITS ---
WS: [id number] MRI CERVICAL SPINE NONCONTRAST TECHNIQUE: Sagittal T1, T2 and STIR imaging. Axial T2, gradient, and fiesta imaging. CLINICAL INFORMATION: L sided weakness, cervical myelopathy pattern COMPARISON: None. FINDINGS: Normal cervical alignment. Mild spondylitic changes. Slight retrolisthesis C3 on C4. Mild disc bulgin g worse at C3-C4 C5-C6 and C6-C7. Cord signal is normal. C2-C3: Mild facet arthropathy. Spinal canal and foramen are patent. C3-C4: Mild disc bulging with a shallow central protrusion. Slight contact of the cervical cord. Mild central canal stenosis. Mild facet arthropathy. Moderate RIGHT foraminal narrowing. C4-C5: Disc osteophyte protrusion with slight contact of the cervical cord. Mild central canal stenos is. Mild RIGHT foraminal narrowing. Mild facet arthropathy. C5-C6: Disc osteophyte complex with slight indentation cervical cord. Mild central canal stenosis. Mo derate RIGHT and mild LEFT bony foraminal narrowing. Mild facet arthropathy. C6-C7: Disc osteophyte complex with indentation and slight flattening of the cervical cord. Moderate central canal stenosis. Moderate LEFT greater than RIGHT bony foraminal narrowing. Mild facet arthrop athy. C7-T1: Disc osteophyte complex with endplate ridging. Spinal canal is patent. Mild bilateral foramina l narrowing LEFT greater than RIGHT. Visualized brain stem structures: Normal. Prevertebral soft tissues: Normal. MR/MR cervical spin wo con* [id number] IMPRESSION: 1. Mild spondylitic changes cervical spine. Slight retrolisthesis C3 on C4. 2. Disc osteophyte protrusions with slight indentation of the cervical cord an d mild central canal stenosis C3-C4 C4-C5 and C5-C6. 3. Moderate central canal stenosis C6-7 with central disc osteophyte protrusio n with indentation and slight flattening of the cervical cord. 4. Moderate bony foraminal narrowing worse at RIGHT C5-6, LEFT C6-7, and LEFT C7-T1.
[2024-06-22 10:07] LABS: Basophils # 0.1 10^3/uL (0.0-0.1); Basophils % 0.7 %; Eosinophils # 0.2 10^3/uL (0.0-0.8); Eosinophils % 3.4 %; Hematocrit 37.4 % (37-53); Lymphocytes # 1.6 10^3/uL (0.8-4.8); Lymphocytes % 23.5 %; Mean Corpuscular HGB Conc 33.4 g/dL (30-55); Mean Corpuscular Hemoglobin 29.1 pg (27-33); Mean Corpuscular Volume 87.2 fl (82-101); Mean Platelet Volume 9.2 fL (7.4-10.4); Monocytes # 0.3 10^3/uL (0.2-0.9); Neutrophils # 4.73 10^3/uL (1.8-7.7); Nucleated Red Blood Cells % 0 %; Platelet Count 191 10^3/cmm (157-399); Red Blood Count 4.29 10^6/uL (3.85-5.65); Red Cell Distribution Width 13.6 % (12.1-15.1); White Blood Count 6.97 10^3/uL (3.29-11.43)
[2024-06-22 10:32] LABS: Alanine Aminotransferase 20 U/L (0-41); Albumin Level 4.1 g/dL (3.5-5.2); Alkaline Phosphatase 96 U/L (40-130); Anion Gap 15.1 (5-19); Aspartate Amino Transferase 17 U/L (0-40); Blood Urea Nitrogen 18 mg/dL (8-23); Carbon Dioxide 27 mmol/L (22-29); Chloride 98 mmol/L (98-107); Creatinine Clr Calc Pharmacy 104.7953; Globulin 3.1 g/dL (1.3-4.6); Glucose 206 mg/dL (65-115); Lactate Dehydrogenase 175 U/L (135-225); Osmolality Calculated 290 mOsm/kg (285-295); Potassium 4.1 mmol/L (3.5-5.1); Sodium 136 mmol/L (136-145); Thyroid Stimulating Hormone 2.06 uIU/mL (0.27-4.20); Total Bilirubin 0.7 mg/dL (0.15-1.2); Total Protein 7.2 g/dL (6.6-8.7); Uric Acid 5.7 mg/dL (3.4-7.0)
[2024-06-22] MEDS: nivolumab 480 MG in sodium chloride 0.9% 250 ML 596 MG IV (12:47)
[2024-06-22 13:30] VITALS: BP 128/75; PULSE 73; RESP 16; TEMP 36.9; O2SAT 98
== END 2024-06-22 23:59 | disposition home or self-care (01) ==
PROVIDERS: Internal Medicine; PCP Family Medicine; Visit Provider Family Medicine
DX: Z53.9 Procedure and treatment not carried out, unspecified reason; Z51.12 Encounter for antineoplastic immunotherapy; Z79.620 Long term (current) use of immunosuppressive biologic; Z79.899 Other long term (current) drug therapy; C43.4 Malignant melanoma of scalp and neck
CPT/HCPCS: 72141; 80053; 83615; 84443; 84550; 85025; 96413; A4222; J7050; J9299

== ENCOUNTER → 2024-08-22 11:25 | Outpatient (BNVA) | payer MEDICAID, SELFPAY | PROVIDERS: PCP Family Medicine; Visit Provider Family Medicine | DX: E11.42 Type 2 diabetes mellitus with diabetic polyneuropathy (principal); I10 Essential (primary) hypertension; I77.9 Disorder of arteries and arterioles, unspecified; E11.69 Type 2 diabetes mellitus with other specified complication; E78.5 Hyperlipidemia, unspecified; M79.2 Neuralgia and neuritis, unspecified; F17.210 Nicotine dependence, cigarettes, uncomplicated; J30.0 Vasomotor rhinitis | CPT/HCPCS: 83036 ==

== ENCOUNTER 2024-09-20 12:22 | Oncology outpatient (recurring) (ONCR) | payer MEDICAID, SELFPAY ==
[2024-09-20 12:40] LABS: Basophils # 0.1 10^3/uL (0.0-0.1); Basophils % 0.9 %; Eosinophils # 0.2 10^3/uL (0.0-0.8); Eosinophils % 3.8 %; Hematocrit 37.3 % (37-53); Lymphocytes # 1.6 10^3/uL (0.8-4.8); Lymphocytes % 27.6 %; Mean Corpuscular HGB Conc 33.8 g/dL (30-55); Mean Corpuscular Hemoglobin 29.2 pg (27-33); Mean Corpuscular Volume 86.3 fl (82-101); Mean Platelet Volume 9.3 fL (7.4-10.4); Monocytes # 0.4 10^3/uL (0.2-0.9); Monocytes % 6.4 %; Neutrophils # 3.54 10^3/uL (1.8-7.7); Nucleated Red Blood Cells % 0 %; Platelet Count 159 10^3/cmm (157-399); Red Blood Count 4.32 10^6/uL (3.85-5.65); Red Cell Distribution Width 13.8 % (12.1-15.1)
[2024-09-20 12:42] LABS: Erythrocyte Sedimentation Rate 11 mm/hr (0-10)
[2024-09-20 12:57] LABS: Alanine Aminotransferase 25 U/L (0-41); Albumin Level 4.1 g/dL (3.5-5.2); Alkaline Phosphatase 87 U/L (40-130); Anion Gap 14.8 (5-19); Aspartate Amino Transferase 21 U/L (0-40); Blood Urea Nitrogen 12 mg/dL (8-23); Calcium 8.7 mg/dL (8.5-10.5); Carbon Dioxide 27 mmol/L (22-29); Chloride 99 mmol/L (98-107); Globulin 3.2 g/dL (1.3-4.6); Glomerular Filtration Rate 98.3 mL/min (90-130); Glucose 141 mg/dL (65-115); Lactate Dehydrogenase 166 U/L (135-225); Osmolality Calculated 286 mOsm/kg (285-295); Potassium 3.8 mmol/L (3.5-5.1); Sodium 137 mmol/L (136-145); Total Bilirubin 0.7 mg/dL (0.15-1.2); Total Protein 7.3 g/dL (6.6-8.7)
== END 2024-09-20 23:59 | disposition home or self-care (01) ==
PROVIDERS: PCP Family Medicine; Visit Provider Internal Medicine
DX: C43.4 Malignant melanoma of scalp and neck (principal)
CPT/HCPCS: 36415; 80053; 83615; 85025; 85651

== ENCOUNTER 2024-11-10 11:44 | Outpatient (CLI) | payer MEDICAID, SELFPAY ==
--- NOTE | 2024-11-10 12:00 | CT_ITS ---
WS: [id number] CT NECK TECHNIQUE: Contrast-enhanced CT of the neck with coronal and sagittal reformatted images. CLINICAL INFORMATION: surveillance COMPARISON: PET/CT 05/12/2024 DLP: 294.[address] scans at [facility] use at least one of these dose optimization techniques: automated exposure control; mA and/or kV adjustment per patient size (includes targeted exams where dose is matched to clinical indication); or iterative reconstruction. FINDINGS: Normal posterior nasopharynx. Normal parapharyngeal fat. No evidence of supraglottic or glottic mass. Normal thyroid. Parotid glands are normal. Submandibular glands are normal. Enhancing LEFT periparotid lymph node measuring 8 mm appears similar to the prior PET/CT. Recommend continued surveillance. P rominent supra and infraclavicular lymph nodes at the thoracic inlet the largest on the LEFT lobulated measuring 1.8 cm. Mild carotid bulb calcification. Moderate spondylitic changes cervical spine CT/CT neck w con* [id number] IMPRESSION: 1. Enhancing LEFT periparotid lymph node measuring 8 mm appears similar to the prior PET/CT. Recommend continued surveillance. 2. Prominent supra and infraclavicular lymph nodes at the thoracic inlet the l argest on the LEFT lobulated measuring 1.8 cm. This appears stable since the pr ior PET/CT. Recommend continued surveillance.
[2024-11-10 12:28] LABS: Blood Urea Nitrogen 16 mg/dL (8-23); Glomerular Filtration Rate 75.7 mL/min (90-130)
--- NOTE | 2024-11-10 12:30 | CT_ITS ---
WS: [id number] CT CHEST, ABDOMEN, AND PELVIS TECHNIQUE: Contrast-enhanced CT of the chest, abdomen, and pelvis with coronal and sagittal reformatted images. CLINICAL INFORMATION: surveillance COMPARISON: None. DLP: 1568.[address] scans at [facility] use at least one of these dose optimization techniques: automated exposure control; mA and/or kV adjustment per patient size (includes targeted exams where dose is matched to clinical indication); or iterative reconstruction. CT CHEST: Aneurysmal ascending thoracic aorta measuring 4.1 cm. Normal caliber descending thoracic aorta. No mediastinal or hilar lymphadenopathy. No axillary lymphadenopathy. Lungs are well aerated. No acute pulmonary infiltrates. Few calcified granulomas. Tiny nodule superior segment LEFT lower lobe may be partially calcified measuring 3.6 mm. No other suspicious pulmonary parenchymal abnormalities. Ankylosis thoracic spine. CT ABDOMEN AND PELVIS: Fatty liver. Cholelithiasis. Normal spleen. Normal caliber abdominal aorta. Adrenal glands are normal. Normal renal parenchymal enhancement. No hydronephrosis. Small RIGHT renal cyst. Normal portal vein and splenic vein. Fat-containing umbilical hernia. Normal appendix. Chronic compression deformity L2. Chronic biconcave compression at L5. CT/CT chest abdpel w/*[id number] IMPRESSION: 1. Tiny nodule superior segment LEFT lower lobe may be partially calcified yonatan suring 3.6 mm. No other suspicious pulmonary parenchymal abnormalities. 2. Aneurysmal ascending thoracic aorta measuring 4.1 cm. 3. No evidence of metastatic disease in the abdomen or pelvis
[2024-11-10] MEDS: iohexol 350 mg/mL 500 mL Btl (per mL) IV ×2 (12:44→12:46)
[2024-11-10] MEDS: iohexol 350 mg/mL 500 mL Btl (per mL) PO (12:46)
== END 2024-11-10 11:45 | disposition home or self-care (01) ==
PROVIDERS: PCP Family Medicine; Visit Provider Nurse Practitioner Family
DX: C43.4 Malignant melanoma of scalp and neck (principal); R91.1 Solitary pulmonary nodule; I71.21 Aneurysm of the ascending aorta, without rupture
CPT/HCPCS: 70491; 71260; 74177; 82565; 84520

== ENCOUNTER 2024-12-20 12:08 | Oncology outpatient (recurring) (ONCR) | payer MEDICAID, SELFPAY ==
[2024-12-20 12:25] LABS: Hematocrit 36.3 % (37-53); Hemoglobin 12.50 g/dL (11.27-16.99); Mean Corpuscular HGB Conc 34.4 g/dL (30-55); Mean Corpuscular Hemoglobin 30.2 pg (27-33); Mean Corpuscular Volume 87.7 fl (82-101); Nucleated Red Blood Cells % 0 %; Platelet Count 167 10^3/cmm (157-399); Red Blood Count 4.14 10^6/uL (3.85-5.65); White Blood Count 6.63 10^3/uL (3.29-11.43)
[2024-12-20 12:42] LABS: Chloride 99 mmol/L (98-107); Potassium 3.9 mmol/L (3.5-5.1); Sodium 138 mmol/L (136-145)
[2024-12-20 13:40] LABS: Alanine Aminotransferase 23 U/L (0-41); Albumin Level 4.2 g/dL (3.5-5.2); Alkaline Phosphatase 85 U/L (40-130); Anion Gap 16.9 (5-19); Aspartate Amino Transferase 19 U/L (0-40); Blood Urea Nitrogen 19 mg/dL (8-23); Calcium 8.9 mg/dL (8.5-10.5); Carbon Dioxide 26 mmol/L (22-29); Creatinine Clr Calc Pharmacy 101.9698; Globulin 2.9 g/dL (1.3-4.6); Glucose 124 mg/dL (65-115); Osmolality Calculated 290 mOsm/kg (285-295); Total Protein 7.1 g/dL (6.6-8.7)
== END 2024-12-21 23:59 | disposition home or self-care (01) ==
PROVIDERS: Nurse Practitioner Family; PCP Family Medicine; Visit Provider Internal Medicine
DX: Z08 Encounter for follow-up examination after completed treatment for malignant neoplasm (principal); Z85.820 Personal history of malignant melanoma of skin; F17.200 Nicotine dependence, unspecified, uncomplicated; R03.0 Elevated blood-pressure reading, without diagnosis of hypertension; R91.1 Solitary pulmonary nodule; R59.0 Localized enlarged lymph nodes; I63.9 Cerebral infarction, unspecified
CPT/HCPCS: 36415; 80053; 83615; 85025

== ENCOUNTER → 2025-02-26 11:18 | Outpatient (BNVA) | payer MEDICAID, SELFPAY | PROVIDERS: PCP Family Medicine; Visit Provider Family Medicine | DX: E11.42 Type 2 diabetes mellitus with diabetic polyneuropathy (principal) | CPT/HCPCS: 83036 ==

== ENCOUNTER 2025-03-21 12:36 | Oncology outpatient (recurring) (ONCR) | payer MEDICAID, SELFPAY ==
--- NOTE | 2025-03-14 10:15 | CTR_ITS ---
PROCEDURE INFORMATION: Exam: CT Chest With Contrast; Diagnostic Exam date and time: 03/14/2025 11:04 AM Age: 64 years old Clinical indication: Condition or disease; Other: Melanoma; Prior surgery; Surgery date: 6+ months; Surgery type: Right side of neck TECHNIQUE: Imaging protocol: Diagnostic computed tomography of the chest with contrast. Radiation optimization: All CT scans at this facility use at least one of these dose optimization techniques: automated exposure control; mA and/or kV adjustment per patient size (includes targeted exams where dose is matched to clinical indication); or iterative reconstruction. Contrast material: OMNI 350; Contrast volume: 75 ml; Contrast route: INTRAVENOUS (IV); COMPARISON: CT chest abdpel w/*[id number] 11/10/2024 12:33 PM RADIATION DOSE METRICS: Total DLP (mGy-cm): 590.15 FINDINGS: Lungs: There is a calcified left lower lobe pulmonary nodule, stable. There is a stable 4 mm solid circumscribed pulmonary nodule in the superior segment of the left lower lobe. Pleural spaces: Unremarkable. No pneumothorax. No pleural effusion. Heart: Unremarkable. No cardiomegaly. No pericardial effusion. Coronary arteries: There is coronary artery calcification. Lymph nodes: There is a precarinal lymph node which measures 9 x 13 mm on image 23 of series 4. This is stable. Vasculature: The ascending thoracic aorta measures 4.4 cm transverse, stable when remeasured at the same plane. Gallbladder and biliary ducts: There is a single small calcified subcentimeter gallstone in the dependent portion of the body of the gallbladder. Bones/joints: There is no acute osseous abnormality identified. There is no lytic or blastic lesion seen. Degenerative changes are present throughout the thoracic spine. There is mild kyphosis. Soft tissues: Unremarkable. CT/CT chest w con* [id number] IMPRESSION: 1. Stable left lower lobe 4 mm pulmonary nodule. 2. Stable diameter of the ascending thoracic aortic aneurysm. 3. Cholelithiasis.
--- NOTE | 2025-03-14 10:15 | CTR_ITS ---
PROCEDURE INFORMATION: Exam: CT Neck With Contrast Exam date and time: 03/14/2025 11:14 AM Age: 64 years old Clinical indication: Condition or disease; Other: Melanoma; Prior surgery; Surgery date: 6+ months; Surgery type: Right side neck TECHNIQUE: Imaging protocol: Computed tomography of the neck with contrast. Radiation optimization: All CT scans at this facility use at least one of these dose optimization techniques: automated exposure control; mA and/or kV adjustment per patient size (includes targeted exams where dose is matched to clinical indication); or iterative reconstruction. Contrast material: OMNI 350; Contrast volume: 75 ml; Contrast route: INTRAVENOUS (IV); COMPARISON: CT neck w con* [id number] 11/10/2024 12:38 PM RADIATION DOSE METRICS: Total DLP (mGy-cm): 238.16 FINDINGS: Paranasal sinuses: There is prominent mucoperiosteal thickening within the ethmoid sinuses. Salivary glands: Normal. Glands are normal in size. Pharynx: Unremarkable. No significant tonsillar enlargement. Larynx: Unremarkable. Epiglottis is normal. Thyroid: Normal. No enlarged or calcified nodules. Trachea: Visualized trachea is unremarkable. Lungs: Unremarkable as visualized. Lymph nodes: The small enhancing periparotid lymph node on the left is stable measuring 9 mm on image 45 of series 4. This appears to have a small fatty hilum. The 2 adjacent or bilobed enhancing lymph node in the left paramidline of the thoracic inlet is stable measuring 1.9 x 10 mm on image 102 of series 4. There is no other areas significant adenopathy. Vasculature: There is mild atherosclerotic calcification within the right carotid bulb. Bones/joints: There is no acute osseous abnormality seen. There is no lytic or blastic lesion appreciated. There is degenerative facet arthropathy, endplate changes, and uncovertebral hypertrophy throughout the cervical spine. Soft tissues: Unremarkable. No significant soft tissue swelling. CT/CT neck w con* [id number] IMPRESSION: 1. No acute process 2. Stable left periparotid lymph node and stable left supraclavicular thoracic inlet lymph node.
[2025-03-14 11:02] LABS: Blood Urea Nitrogen 17 mg/dL (8-23)
[2025-03-14] MEDS: iohexol 350 mg/mL 500 mL Btl (per mL) IV ×2 (11:32→11:33)
[2025-03-21 12:49] LABS: Hematocrit 40.1 % (37-53); Hemoglobin 13.70 g/dL (11.27-16.99); Mean Corpuscular HGB Conc 34.2 g/dL (30-55); Mean Corpuscular Hemoglobin 30.4 pg (27-33); Mean Corpuscular Volume 89.1 fl (82-101); Nucleated Red Blood Cells % 0 %; Platelet Count 189 10^3/cmm (157-399); Red Blood Count 4.50 10^6/uL (3.85-5.65); White Blood Count 8.75 10^3/uL (3.29-11.43)
[2025-03-21 13:13] LABS: Alanine Aminotransferase 23 U/L (0-41); Albumin Level 4.4 g/dL (3.5-5.2); Alkaline Phosphatase 91 U/L (40-130); Anion Gap 17.2 (5-19); Aspartate Amino Transferase 19 U/L (0-40); Blood Urea Nitrogen 16 mg/dL (8-23); Calcium 9.2 mg/dL (8.5-10.5); Carbon Dioxide 26 mmol/L (22-29); Chloride 99 mmol/L (98-107); Creatinine Clr Calc Pharmacy 113.2863; Globulin 2.9 g/dL (1.3-4.6); Glucose 96 mg/dL (65-115); Osmolality Calculated 287 mOsm/kg (285-295); Potassium 4.2 mmol/L (3.5-5.1); Sodium 138 mmol/L (136-145); Total Protein 7.3 g/dL (6.6-8.7)
== END 2025-03-23 23:59 | disposition home or self-care (01) ==
PROVIDERS: PCP Family Medicine; Visit Provider Internal Medicine
DX: C43.4 Malignant melanoma of scalp and neck; Z53.9 Procedure and treatment not carried out, unspecified reason
CPT/HCPCS: 36415; 70491; 71260; 80053; 82565; 83615; 84520; 85025